=== PATIENT | female | born 2000 ===

== ENCOUNTER 2020-01-27 12:42 | Emergency (ER) | payer MEDICAID, SELFPAY ==
--- NOTE | 2020-01-27 | XR_ITS ---
EXAMINATION: XR CHEST CLINICAL INFORMATION: Cough COMPARISON: None TECHNIQUE: Frontal view of the chest was obtained. FINDINGS: No significant abnormality is noted involving the heart, lungs, mediastinum, bony thorax or soft tissues. IMPRESSION: Unremarkable examination.
[2020-01-27 13:32] VITALS: BP 142/86; PULSE 91; RESP 16; TEMP 36.6; O2SAT 97; BMI 50.1
--- NOTE | 2020-01-27 13:33 | ED.URI ---
HPI - URI/Sore Throat General Chief Complaint: Upper Respiratory Symptoms Stated Complaint: cough,sore throat Time Seen by Provider: 01/27/20 13:22 Source: patient Mode of arrival: ambulatory History of Present Illness HPI Narrative: 19-year-old female with no significant past medical history complaining of not feeling well for the past few days with dry cough, sore throat and generalized myalgias. Also reports mild/intermittent SOB and chest discomfort when coughing. Denies fever, recent travel, known exposure to COVID-19 MD elicited complaint: cough, sore throat and nasal congestion Related Data Allergies Allergy/AdvReac Type Severity Reaction Status Date / Time patterson Allergy Unknown SHORTNESS Unverified 01/07/20 16:57 OF BREATH Fruit Allergy Unknown swelling Uncoded 11/30/19 00:00 Seasonal Allergies Allergy Unknown itching Uncoded 11/30/19 00:00 Review of Systems Review of Systems: Constitutional: No Weight loss, No Fever, Chills, No Night Sweats, No Fatigue, Malaise ENT/Mouth: No Hearing loss, No Ear Pain, No Nasal Congestion, No Sinus Pain, No Hoarseness, sore throat, Rhinorrhea, No Swallowing Difficulty Cardiovascular: intermittent Chest Pain, intermittent SOB Respiratory: Cough, No Sputum, No Wheezing Gastrointestinal: No Nausea, No Vomiting, No Diarrhea, No Constipation, No abdominal Pain, No Hematochezia, No Melena Musculoskeletal: Myalgias Skin: No Skin Lesions, No rash Yes all other systems are reviewed and are negative PMFSH Past Medical History Attestation statement: The following information was validated with the patient. Medical History (Updated 01/27/20 @ 13:37 by Tana Haro) Anemia Seasonal allergies Surgical History (Updated 01/27/20 @ 13:37 by Tana Haro) Hx of tonsillectomy Social History Social History Advance Directives: No Advance Directives Information Provided: Yes Physical Exam Vital Signs and I&O and Narrative: Vital Signs and I&O: Vital Signs Temp 97.9 F 01/27/20 13:32 Pulse 91 01/27/20 13:32 Resp 16 01/27/20 13:32 BP 142/86 H 01/27/20 13:32 Pulse Ox 97 01/27/20 13:32 Intake & Output 01/26/20 01/27/20 01/27/20 18:59 06:59 18:59 Weight 145.15 kg Body Mass Index 50.1 Const: General: cooperative and healthy appearing Orientation/consciousness: patient oriented x3 Limitations: no limitations HENMT: Head: Yes normal to inspection Ears: hearing grossly normal bilaterally General nose exam: Normal external nose present Face and sinus: Yes normal facial exam Eyes: General: appearance normal, both eyes and all related structures EOM: EOMs intact bilaterally Neck: Neck: Yes normal visual inspection Resp: Effort & Inspection: normal respiratory effort and no stridor Auscultation: clear to auscultation bilaterally, no crackles, no rales, no rhonchi and no wheezes Cardio: Rate: regular rate Heart sounds: S1 normal heart sound present and S2 normal heart sound present Peripheral pulses: Peripheral pulses 2+ throughout Skin: Wounds: no wounds Neuro: General: patient oriented x3 Extrem: General: Yes normal to inspection Course Course Course Narrative: CXR unremarkable Discharge Plan Discharge Clinical Impression: Upper respiratory infection, Pharyngitis Patient Disposition: Home, Self-Care Instructions: COVID-19 (Coronavirus Disease 2019) (ED) Additional Instructions: Based on your symptoms and history we have sent a COVID-19. Although your RESULT IS PENDING at this time. RESULTS should return within 72 hours. At this time you will be contacted with either NEGATIVE OR POSITIVE results. -Please wait until we contact you for your results. At this time you will be okay for discharge. Please plan for self quarantine for up to 14 days. Do not expose yourself to others. You may not go to work. If testing does come back negative you may return to activities as long as you are no longer having any symptoms for at least 3 days. Please continue to follow cold instructions and wash your hands frequently. You may take Tylenol as directed on the bottle for pain or fever. Patient seen in the emergency department on 10/16/2019 and should be excused from work until negative test results AND until 72 hours without any symptoms AND at least 10 days have passed since symptoms first appeared or since last exposure to COVID-19 positive patient CDC Guidelines for home isolation: - Stay away from others - WEAR A MASK if you are sick AND STAY HOME - Cover your mouth and nose with a tissue when you cough or sneeze. Dispose of tissues in a lined trash can and wash your hands immediately with soap and water for at least 20 seconds. If soap and water are not available, clean hands with alcohol-based hand supervisor public message service that contains at least 60% alcohol. - Clean your hands often with soap and water for at least 20 seconds - Avoid touching your eyes, nose and mouth with unwashed hands - Do not share dishes, drinking glasses, cups, eating utensils, towels, or bedding with other people in your home. After using these items, wash them thoroughly with soap and water or put in the revenue audit clerk. - Clean high-touch surfaces in your isolation area ( sick room and bathroom) every day; let a caregiver clean and disinfect high-touch surfaces in other areas of the home. Clean the area or item with soap and water or another detergent if it is dirty. Then, use a household disinfectant. - Limit contact with pets and animals: If you must care for a pet, wash your hands before and after interacting with them Referrals: Physician,None [Primary Care Provider] - 2 days Stand Alone Forms: Work/School Release
== END 2020-01-27 15:00 | disposition home or self-care (01) ==
PROVIDERS: Physician Assistant; Emergency Provider Emergency Medicine
DX: J06.9 Acute upper respiratory infection, unspecified (principal); Z20.828 Contact with and (suspected) exposure to other viral communicable diseases; J02.9 Acute pharyngitis, unspecified; D64.9 Anemia, unspecified
CPT/HCPCS: 71045; 87071; 87635; 99283; 99284

== ENCOUNTER 2020-03-28 21:45 | Emergency (ER) | payer MEDICAID, SELFPAY ==
[2020-03-28 21:48] VITALS: BP 108/57; PULSE 72; RESP 20; TEMP 36.6; O2SAT 98; BMI 47.1
[2020-03-28 22:07] LABS: Glucose Urine UA NEG (NEG); Leukocyte Esterase Urine NEG (NEG); Nitrite Urine NEG (NEG); Specific Gravity - Urine >= 1.030 (1.005-1.025); Urine Blood NEG (NEG); Urine Ketones NEG (NEG); Urine Protein NEG (NEG-TRACE)
[2020-03-28 22:08] LABS: Appearance Urine CLEAR; Color Urine YELLOW
--- NOTE | 2020-03-28 23:14 | ED.ABDPAIN ---
HPI - Abdominal Pain General Chief Complaint: Abdominal Pain Stated Complaint: Abdominal pain Time Seen by Provider: 03/28/20 22:22 Source: patient Mode of arrival: ambulatory Limitations: no limitations History of Present Illness HPI narrative: patient obese 135 kg comes here for 1 month of diffuse abdominal pain without any nausea/ vomiting /diarrhea feels bloated sometimes asking for test for gastric ulcer. Patient denies any vomiting blood no black stools no history of ulcers in the past has not seen any PCP for this patient's mother has gastritis and patient wants to be tested for ulcer today MD elicited complaint: abdominal pain Pain Consistency: intermittent Location: diffuse Severity: mild Quality: cramping Radiation: none Migration to: no migration Exacerbating factors: nothing Relieving factors: nothing Associated symptoms: denies other symptoms Related Data Previous Rx's Medication Instructions Recorded omeprazole 20 mg PO DAILY #20 cap 03/29/20 Allergies Allergy/AdvReac Type Severity Reaction Status Date / Time patterson Allergy Unknown SHORTNESS Verified 03/28/20 23:43 OF BREATH Fruit Allergy Unknown swelling Uncoded 11/30/19 00:00 Seasonal Allergies Allergy Unknown itching Uncoded 11/30/19 00:00 Review of Systems Review of Systems REVIEW OF SYSTEMS: Pertinent positives and negatives are stated above in the history. GEN: no fevers, chills, fatigue HEENT: no nasal congestion, sore throat, ear pain NEURO: no headache, dizziness, focal weakness PULM: no cough, shortness of breath CV: no chest pain, palpitations, LE edema ABD: no nausea, vomiting, diarrhea : no dysuria, urgency, frequency SKIN: no rash ROS otherwise negative x 10 Physical Exam Vital Signs: Vital Signs: Last Vital Signs Temp 98 F 03/28/20 21:48 Pulse 72 03/28/20 21:48 Resp 20 03/28/20 21:48 BP 108/57 L 03/28/20 21:48 Pulse Ox 98 03/28/20 21:48 Body Mass Index 47.1 Appearance: Alert. Oriented X3. No acute distress. Eyes: Pupils equal, round and reactive to light. ENT: Pharynx normal. Neck: Normal inspection. Neck supple. CVS: Normal heart rate and rhythm. Pulses normal. Respiratory: No respiratory distress. Breath sounds normal. Abdomen: Soft and nontender. gallstones are present no flank tenderness no mass palpable no hernia palpable bowel sounds are present Skin: Skin warm and dry. Normal skin color. Normal skin turgor. Extremities: No lower extremity edema. Good range of movement Neuro: Oriented X 3. No motor deficit. No sensory deficit. MDM - Abdominal Pain Lab Data Labs: Lab Results 03/28/20 Range/Units 22:02 Urine Color YELLOW Urine Appearance CLEAR Urine pH 6.0 (5.0-8.0) Ur Specific [place] >= 1.030 H (1.005-1.025) Urine Protein NEG (NEG-TRACE) MG/DL Urine Glucose (UA) NEG (NEG) MG/DL Urine Ketones NEG (NEG) MG/DL Urine Blood NEG (NEG) Urine Nitrite NEG (NEG) Ur Leukocyte Esterase NEG (NEG) Discharge Plan Discharge Clinical Impression: Gastritis Qualifiers: Gastritis type: superficial Chronicity: acute Gastritis bleeding: without bleeding Qualified Code(s): K29.00 - Acute gastritis without bleeding Patient Disposition: Home, Self-Care Instructions: Gastritis (ED) Additional Instructions: you possibly have mild gastritis. Avoid greasy food and take Prilosec as advised and follow with PCP Prescriptions: New omeprazole 20 mg capsule,delayed release(DR/EC) 20 mg PO DAILY Qty: 20 RF: 0 Interventions: ED Discharge Assessment Last Done: 03/29/20 01:20 Discharge Date/Time: 03/29/20 01:20 [facility] Past Medical History Medical History Anemia Seasonal allergies Surgical History Hx of adenoidectomy Hx of tonsillectomy Family History Family History Father HTN (hypertension) Mother Arthritis HTN (hypertension) Brother No problems noted. Sister No problems noted. Sister No problems noted. Sister No problems noted. Sister No problems noted. Sister No problems noted. Sister No problems noted. Sister No problems noted. Social History Social History Smoking Status: Never smoker Advance Directives: No Advance Directives Information Provided: No
[2020-03-28] MEDS: Dicyclomine HCl 10 MG CAPSULE 20 MG PO (23:44)
[2020-03-29] MEDS: Omeprazole 40 MG CAPSULE.DR PO (00:34)
== END 2020-03-29 01:20 | disposition home or self-care (01) ==
PROVIDERS: Emergency Provider Internal Medicine
DX: K29.00 Acute gastritis without bleeding (principal)
CPT/HCPCS: 81003; 99283

== ENCOUNTER → 2020-04-13 09:45 | Outpatient (BNVA) | payer MEDICAID, SELFPAY | PROVIDERS: PCP Surgery; Visit Provider Surgery | DX: E66.01 Morbid (severe) obesity due to excess calories (principal); Z71.3 Dietary counseling and surveillance | CPT/HCPCS: 99212 ==

== ENCOUNTER 2020-05-05 15:30 | Outpatient (REF) | payer MEDICAID, SELFPAY | END 2020-05-05 15:31 | disposition home or self-care (01) | LOC: HO.LAB 15:30 | PROVIDERS: Visit Provider Internal Medicine | DX: Z20.822 Contact with and (suspected) exposure to COVID-19 (principal) | CPT/HCPCS: 36415; C9803; U0003 ==

== ENCOUNTER → 2020-05-06 08:22 | Outpatient (BNVA) | payer MEDICAID, SELFPAY | PROVIDERS: PCP Surgery; Visit Provider Dietitian, Registered | DX: Z76.89 Persons encountering health services in other specified circumstances (principal) ==

== ENCOUNTER → 2020-05-11 08:09 | Outpatient (BNVA) | payer MEDICAID, SELFPAY | PROVIDERS: PCP Internal Medicine; Visit Provider Surgery ==

== ENCOUNTER → 2020-05-13 13:50 | Outpatient (BNVA) | payer MEDICAID, SELFPAY | PROVIDERS: PCP Internal Medicine; Visit Provider Physician Assistant ==

== ENCOUNTER 2020-05-16 12:31 | Outpatient (REF) | payer MEDICAID, SELFPAY ==
[2020-05-16 13:53] LABS: MANUAL DIFF FLAG NO
[2020-05-16 13:56] LABS: Basophils Percent Auto 0.5 % (0-2); Eosinophils Absolute Auto 0.2 X10*3/uL (0.0-0.4); Eosinophils Percent Auto 1.9 % (0-4); Hemoglobin 12.4 g/dl (12.0-16.0); Imm Gran Abs Auto 0.01 X10*3/uL (0.00-0.03); Imm Gran Pct Auto 0.1 % (0.0-0.4); Lymphocytes Absolute Auto 2.3 X10*3/uL (1.2-4.9); Lymphocytes Percent Auto 27.5 % (20-40); Mean Corpuscular HGB Conc 31.8 g/dl (31.0-35.0); Mean Corpuscular Hemoglobin 26.8 pg (27.0-33.0); Mean Corpuscular Volume 84.4 fL (80-98); Mean Platelet Volume 10.2 fL (9.4-12.3); Monocytes Absolute Auto 0.4 X10*3/uL (0.1-1.2); Monocytes Percent Auto 5.2 % (2-11); Neutrophils Absolute Auto 5.3 X10*3/uL (2.0-8.3); Neutrophils Percent Auto 64.8 % (45-73); Platelet Count 310 X10*3/uL (160-400); Red Blood Count 4.62 X10*6/uL (4.20-5.50); Red Cell Distribution Width 13.5 % (11.0-16.0); White Blood Count 8.2 X10*3/uL (4.8-10.8)
[2020-05-16 14:01] LABS: INTERNATIONAL NORM RATIO 1.1 (0.9-1.1); Prothrombin Time 12.7 SEC (10.8-13.0)
[2020-05-16 14:04] LABS: Partial Thromboplastin Time 37.2 SEC (24.1-38.0)
[2020-05-16 14:07] LABS: Estimated Average Glucose 88 mg/dL; Hemoglobin A1c % 4.7 %
[2020-05-16 14:33] LABS: Alanine Aminotransferase 51 U/L (0-31); Albumin Level 4.1 g/dL (3.5-5.0); Alkaline Phosphatase 62 U/L (39-117); Anion Gap 16 (12-20); Aspartate Amino Transferase 29 U/L (5-31); Bilirubin Total 0.3 mg/dL (0.0-1.0); Blood Urea Nitrogen 10 mg/dL (9-16); C Reactive Protein 0.53 mg/dL (< or = 0.50); Calcium 9.3 mg/dL (8.4-10.2); Carbon Dioxide 23 mmol/L (22-29); Chloride 107 mmol/L (96-108); Cholesterol 132 mg/dL; Estimated Glomerular Filt Rate > 60; Glucose Random 86 mg/dL (60-115); HDL Cholesterol 43 mg/dL; LDL Cholesterol Calculated 76 mg/dl; Sodium 142 mmol/L (135-145); Total Protein 7.4 g/dL (6.5-8.0); Triglycerides 66 mg/dL
[2020-05-16 14:34] LABS: TSH reflex Free T4 1.96 mIU/mL (0.32-4.0)
[2020-05-17 17:52] LABS: Insulin Level Total 33.6 uIU/mL
== END 2020-05-16 12:32 | disposition home or self-care (01) ==
LOC: HO.LAB 12:31
PROVIDERS: PCP Internal Medicine; Visit Provider Surgery
DX: E66.01 Morbid (severe) obesity due to excess calories (principal)
CPT/HCPCS: 36415; 80053; 80061; 83036; 83525; 84443; 85025; 85610; 85730; 86140

== ENCOUNTER 2020-05-16 13:32 | Outpatient (REF) | payer MEDICAID, SELFPAY | END 2020-05-16 13:33 | disposition home or self-care (01) | LOC: HO.LAB 13:32 | PROVIDERS: Visit Provider Internal Medicine | DX: Z20.822 Contact with and (suspected) exposure to COVID-19 (principal) | CPT/HCPCS: 36415; C9803; U0003 ==

== ENCOUNTER → 2020-05-23 12:56 | Outpatient (BNVA) | payer MEDICAID, SELFPAY | PROVIDERS: Visit Provider Physician Assistant ==

== ENCOUNTER 2020-05-24 05:54 | Inpatient (IN) | payer MEDICAID, OTHER, SELFPAY ==
[2020-05-12 15:21] VITALS: BMI 46.0
--- NOTE | 2020-05-23 10:47 | HO.ANESPROP2 ---
Documented by User: Kaelyn Suresh 05/23/20 10:51 HPI - Anesthesia Eval Consult details Narrative: 19yo F for Gastrectomy Sleeve PMFSH Past Medical History Medical History Anemia Anxiety GERD (gastroesophageal reflux disease) Morbid obesity Recent URI Seasonal allergies Family History Family History Father HTN (hypertension) Mother Arthritis HTN (hypertension) Brother No problems noted. Sister No problems noted. Sister No problems noted. Sister No problems noted. Sister No problems noted. Sister No problems noted. Sister No problems noted. Sister No problems noted. Surgical History Surgical History Hx of adenoidectomy Hx of tonsillectomy Social History Social History Are you a primary client care consultant to a significant other at home: No Do you presently have visiting nurse or other home services: No Smoking Status: Never smoker Use of substances other than those prescribed or required for medical reasons: No Have you been hit, kicked, punched, or otherwise hurt by someone within the past year? If so, by whom?: No Advance Directives: No Advance Directives Information Provided: No Advance Directives on File: No Recently lost weight without trying: No Meds Allergies Allergy/AdvReac Type Severity Reaction Status Date / Time patterson Allergy Severe Shortness Verified 05/12/20 15:18 of Breath Fruit Allergy Intermediate Itching Uncoded 05/12/20 15:18 Seasonal Allergies Allergy Intermediate itching Uncoded 05/12/20 15:18 Home Medications Medication Instructions Recorded Confirmed Type multivitamin with iron 1 tab PO DAILY 04/13/20 05/11/20 History Exam Exam Date and Time: May 23, 2020 1047 Height,Weight and Vital Signs: Height 5 ft 7 in Weight 133.356 kg Pertinent Lab Results Pertinent Lab Results: Laboratory Tests 05/16/20 12:46 Blood Type O Positive Antibody Screen NEGATIVE Laboratory Tests 05/16/20 05/16/20 12:46 12:46 WBC 8.2 Hgb 12.4 Hct 39.0 Plt Count 310 Sodium 142 Potassium 4.0 Chloride 107 Carbon Dioxide 23 BUN 10 Creatinine 0.61 Laboratory Tests 05/16/20 05/16/2005/16/21 12:46 12:46 12:46 PT 12.7 INR 1.1 APTT 37.2 Hemoglobin A1c % 4.7 Total Bilirubin 0.3 AST 29 ALT 51 H Alkaline Phosphatase 62 C-Reactive Protein 0.53 H Total Protein 7.4 Albumin 4.1 Narrative Narrative: EKG 2019 NSR with SA @ 76 Assessment and Plan Assessment Anesthesia Assessment: Chart Reviewed Documented by User: Josse 05/24/20 08:21 PMFSH Past Medical History Medical History Anemia Anxiety GERD (gastroesophageal reflux disease) Morbid obesity Recent URI Seasonal allergies Family History Family History Father HTN (hypertension) Mother Arthritis HTN (hypertension) Brother No problems noted. Sister No problems noted. Sister No problems noted. Sister No problems noted. Sister No problems noted. Sister No problems noted. Sister No problems noted. Sister No problems noted. Surgical History Surgical History Hx of adenoidectomy Hx of tonsillectomy Social History Social History Are you a primary client care consultant to a significant other at home: No Do you presently have visiting nurse or other home services: No Smoking Status: Never smoker Use of substances other than those prescribed or required for medical reasons: No Have you been hit, kicked, punched, or otherwise hurt by someone within the past year? If so, by whom?: No Advance Directives: No Advance Directives Information Provided: No Advance Directives on File: No Recently lost weight without trying: No Meds Allergies Allergy/AdvReac Type Severity Reaction Status Date / Time patterson Allergy Severe Shortness Verified 05/12/20 15:18 of Breath Fruit Allergy Intermediate Itching Uncoded 05/12/20 15:18 Seasonal Allergies Allergy Intermediate itching Uncoded 05/12/20 15:18 Home Medications Medication Instructions Recorded Confirmed Type multivitamin with iron 1 tab PO DAILY 04/13/20 05/11/20 History Exam Airway Mallampati Class: III TM Dist: >3cm Neck ROM: Full Loose/Missing/Broken Teeth: No Heart: rrr+[id number] Lungs: cta b/l Assessment and Plan Assessment Anesthesia Assessment: Anesthesia Plan Discussed and PAT Visit Final Anesthetic Review NPO: Yes ASA Class: II Final Preanesthetic Review: No Changes in Pt Med Stat, Meds/Allgs Chart Reviewed, Consent Obtained/Reviewed and Anes Risks/Benef Reviewed Patient Risk: Low Procedure Risk: Low Assessment/Block/Sedation in SS: Assess/Block/Sedation-SS Anesthetic Plan Anesthetic Plan: GA and Agree w/ Assess. and Plan Disposition: Standard PACU
--- NOTE | 2020-05-23 20:40 | MHC.SHP ---
Pre-Procedural Eval Section A The patient is an INPATIENT: Yes The History & Physical has been completed within 30 days and I have reviewed it.: No Section B Chief Complaint: obesity Details of Present Illness: Morbid obesity Relevant Family History (Specify if Yes): No Relevant Social History: None Present Medications: see Short Stay Collaborative assessment Medical History: No relevant PMH History of Previous Operations: No relevant previous surgery Allergies: Allergies Allergy/AdvReac Type Severity Reaction Status Date / Time patterson Allergy Severe Shortness Verified 05/12/20 15:18 of Breath Fruit Allergy Intermediate Itching Uncoded 05/12/20 15:18 Seasonal Allergies Allergy Intermediate itching Uncoded 05/12/20 15:18 Review of Systems Sugical H&P ROS: Negative: Constitution, Cardiovascular, Respiratory, Neurological, Psychiatric, Hem-Onc, Allergic/Immunologic, Gastrointestinal, Genitourinary, Musculoskeletal, Integumentary, Endocrine and Eyes/Ears/Nose/Throat Exam Surgical H&P Exam: Normal: HEENT, Normal: Heart, Normal: Lungs, Normal: Extremities, Normal: Abdomen, Normal: Skin and Normal: Neurological Plan Diagnosis/Plan: Unchanged I have reviewed the history and physical and performed a pertinent physical examination on my patient. No changes have occurred unless specified.
[2020-05-24] VITALS (14 sets, daily range): BP systolic 122–151; BP diastolic 63–87; PULSE 56–98; RESP 14–18; TEMP 36.1–36.9; O2SAT 96–100
[2020-05-24 06:49] LABS: UPreg QC Valid YES; Urine Pregnancy NEGATIVE (NEGATIVE)
[2020-05-24] MEDS: Lactated Ringers 1,000 ML 999 ML IVCONT (06:54)
[2020-05-24 07:00] LABS: COVID-19 Test Negative (Negative); IDNOW Serial# 9DD0AD1C
[2020-05-24] MEDS: Lactated Ringers 1,000 ML 100 ML IVCONT (07:16)
--- NOTE | 2020-05-24 08:21 | HO.POSTANES ---
Post Anesthesia Evaluation Post Anesthesia Evaluation Vital Signs: Vital Signs Temp Pulse Resp BP Pulse Ox 05/24/20 06:49 98.4 F 68 16 131/64 96 Anesthesia: General Endotracheal-GETA Mental Status: Awake Pain Control: Satisfactory Nausea/Vomiting: None Hydration: Adequate Anesthesia-Related Issues: No Anes. Related Issues
--- NOTE | 2020-05-24 10:15 | P.DS_ITS ---
DS: Providers Provider Date of Service: 05/25/20 Date of admission: 05/24/20 05:54 Primary care physician: None Physician DS: Medications Discharge Medications Home Medications: Home Medications Medication Instructions Recorded Confirmed multivitamin with iron 1 tab PO DAILY 04/13/20 05/11/20 Previous Rx's Medication Instructions Recorded omeprazole 20 mg PO DAILY #20 cap 03/29/20 ondansetron HCl 4 mg tablet 4 mg PO Q6H PRN #30 tab 05/11/20 pantoprazole 40 mg tablet,delayed 40 mg PO DAILY #30 tab 05/11/20 release polyethylene glycol 3350 17 gram 17 g PO DAILY #14 ea 05/11/20 oral powder packet sucralfate 100 mg/mL oral 10 ml PO BID #420 ml 05/11/20 suspension DS: Summary Time Spent with Patient Time attestation: ADMITTING DIAGNOSIS: morbid obesity, GERD, hiatal hernia DISCHARGE DIAGNOSIS: same, s/p laparoscopic sleeve gastrectomy and repair of hiatal hernia PAST SURGICAL HISTORY: tonsils and adenoids PROCEDURE: upper endoscopy, laparoscopic sleeve gastrectomy with gastropexy and hiatal hernia repair DISCHARGE SUMMARY: History of Present Illness: The patient is a 19 year-old woman with a BMI of 54.4 kg/m2 and associated co- morbidities as described above. The patient had extensive work-up,lost 53 lbs preoperatively and was electively scheduled for laparoscopic, possible open sleeve gastrectomy and gastropexy. Risks and complications of the surgery were discussed with the patient in advance, particularly the possibility of , pulmonary embolism, anastomotic leak, bleeding, bowel injury, GERD, cardiac, renal or pulmonary complications. The patient understood all the risks and was in agreement with the surgical plan. Hospital Course: The patient underwent an uneventful laparoscopic sleeve gastrectomy with gastropexy and hiatal hernia repair on the day of admission. Postoperatively, the patient was transferred to the surgical floor. The patient was on IV Acetaminophen and IV dilaudid for pain control. Patient was started on bariatric phase 1 diet POD #0. On postoperative day one, the patient was feeling well without nausea, vomiting, fevers, or tachycardia. The patient had some mild incisional pain. The abdomen was soft. On the morning of postoperative day one, the patient was continued on 1 ounce of water or ice every half hour. During the first day, the patient did fairly well, having some incisional pain, but able to ambulate adequately and to tolerate liquids well. Since the patient is doing well, we decided that the patient was ready to be discharged. The patient was given instructions to follow-up with me next week and to call my office for any fever over 101, persistent abdominal pain, nausea, vomiting, GERD, symptoms of DVT such as calf tenderness, or leg swelling, or pulmonary embolism such as chest pain or shortness of breath. The patient was also instructed to drink 40-60 ounces of liquids per day using the 1-ounce cups. The patient was given prescription for Tylenol for pain, Zofran prn for nausea, and pantoprazole and carafate. The patient was encouraged to ambulate and use the incentive spirometer. The patient was allowed to shower, but no baths, and encouraged to stay active at home. All of these instructions were given to the patient personally. All questions were answered and the patient understood all instructions, the instructions were also given to the patient in print. Total time spent providing and/or coordinating discharge services: 30 minutes Discharge coordination time: Greater than 30 minutes Physical Exam Vital Signs: Vital Signs: Last Vital Signs Temp 97.2 F 05/24/20 10:11 Pulse 98 05/24/20 10:11 Resp 14 05/24/20 10:11 BP 139/86 05/24/20 10:11 Pulse Ox 100 05/24/20 10:11 Body Mass Index 46.0 DS: Data Data Completed and Pending Pending studies at discharge: Pending at discharge 05/24/20 08:36 Surgical [PTH] Routine Labs on day of discharge: Laboratory Tests 05/16/20 05/24/20 05/24/20 12:46 06:28 06:30 Urine Test NEGATIVE COVID-19 (JAMIL) Negative COVID-19 Clin Com See Note Blood Type O Positive Antibody Screen NEGATIVE Discharge Plan Discharge Anticipated Discharge Date/Time: 05/25/20 11:13 Patient Disposition: Home, Self-Care Referrals: Physician,None [Primary Care Provider] - Discharge Medications: Continued pantoprazole 40 mg tablet,delayed release (DR/EC) 40 mg PO DAILY Qty: 30 RF: 2 sucralfate 100 mg/mL suspension 10 ml PO BID Qty: 420 RF: 2 ondansetron HCl [Zofran] 4 mg tablet 4 mg PO Q6H PRN (Reason: nausea and vomiting) Qty: 30 RF: 0 Discontinued omeprazole 20 mg capsule,delayed release(DR/EC) 20 mg PO DAILY Qty: 20 RF: 0 multivitamin with iron [Daily Vitamin with Iron] Tablet 1 tab PO DAILY RF: 0 polyethylene glycol 3350 [Miralax] 17 gram powder in packet 17 g PO DAILY Qty: 14 RF: 0 Discharge Orders: Discharge Order (Routine); Ordered 05/25/20 Ordered By: Iker Marcos Diet: other Activity on Discharge: No heavy lifting Stand Alone Forms: Patient Portal Discharge page Activity Restrictions/Additional Instructions: No tub baths, sex or returning to work until discussed at first post op appointment. No exercise, alcohol, tobacco or illegal drug use. Continue to use incentive spirometer hourly while awake. Walk in home for 5- 10 minutes every 2 hours during the first week. Continue phase 1 diet today and start phase 2 diet tomorrow morning. Follow all instructions in the bariatric handbook and call with any questions. Visit Report Forms: Patient Portal Discharge page Care Plan Goals: weight loss Health Concerns: morbid obesity Plan of Treatment: see discharge instructions Discharge Date/Time: 05/25/20 12:46
--- NOTE | 2020-05-24 10:18 | P.BOP_ITS ---
Brief Operative Note Date of Service: 05/24/20 Pre-op diagnosis: Morbid obesity and comorbidities (see below) Post-op diagnosis: same (adhesions and diaphragmatic hernia) Procedure: INITIAL PATIENT BMI ON PRESENTATION AT OUR OFFICE: 54.4 kg/m2 LAST BMI BEFORE SURGERY: 46.2 kg/m2 COMORBIDITIES: GERD, back pain, liver steatosis The patient participated in an intensive weekly lifestyle intervention and exercise program during which the patient has lost between the initial office visit and the last preoperative visit 53 lbs, or 15.26% of initial actual body weight. The patient met the BMI-criteria for bariatric surgery based on the BMI on initial presentation. The patient should not be penalized for achieving such weight loss because it is not sustainable long-term without surgical intervention and it was achieved in preparation for bariatric surgery under my direction and based on my published research ([email or web address] and [email or web address]) that a 10% preoperative weight loss improves long-term weight loss after surgery and reduces perioperative complications. Insurance carriers such as [facility] have endorsed my recommendations and have included in their policies criteria to include a 10% preoperative weight loss requirement. PROCEDURE: Esophago-gastroscopy, laparoscopic repair of incarcerated diaphragmatic hernia, laparoscopic lysis of adhesions, laparoscopic sleeve gastrectomy and laparoscopic gastropexy INDICATIONS: This is a 19 year-old female who was electively scheduled for laparoscopic, possibly open sleeve gastrectomy. The risks and complications of the procedure were discussed with the patient in advance, particularly the possibility of ; pulmonary embolism; staple line leak; bleeding; GERD; cardiac, pulmonary, or renal complications; as well as long-term problems such as insufficient weight loss, vitamin deficiency, strictures, or ulcers. The patient understood all the risks, and was in agreement to proceed with surgery. DESCRIPTION OF PROCEDURE: After informed consent was obtained from the patient, the patient was given preoperative antibiotics, and was transferred to the operating room. After successful induction of general anesthesia, a Negrete catheter and pneumatic compressive devices were placed on both lower extremities. An upper endoscopy was performed next. The oropharynx and esophagus appeared to be within normal limits. There was a diaphragmatic hernia present of moderate size that was not reported at the preoperative upper GI. The stomach was entered. Then after all fluid and air were suctioned and the stomach was fully decompressed, the scope was withdrawn and secured in the mid esophagus. The patient was then prepped and draped in the usual sterile manner, and abdominal access was established at the right upper quadrant with the Claire technique. A 12 mm blunt port was inserted, and the abdomen was insufflated with CO2 to a pressure of 15 mmHg. Under direct visualization, additional ports were placed, specifically two 5 mm Versi-step ports to the left upper quadrant, and a 5 mm Versi-Step port to the right upper quadrant. 1% lidocained plan was used to infiltrate all port sites as well as all fascia defects. Following that, the patient was placed in a steep reverse Trendelenburg position. An additional 5 mm port was placed to the right flank for the Mediflex retractor that was used to retract the left lobe of the liver. The gastro-esophageal fat pad was opened with the ultrasonic device (Thunderbeat, Olympus) and the anterior esophagus and hiatus were exposed. The angle of His was opened with the ultrasonic device the fundus of the stomach from any diaphragmatic and splenic attachments. I then opened the gastrocolic ligament between the transverse colon and the greater curvature of the stomach with the ultrasonic device to enter the lesser sac and facilitate the ligation of the short gastric vessels. I started at a mid-point along the greater curvature and using the Thunderbeat, all short gastric vessels were divided all the way to the angle of His until the left roseline was completely dissected at its entirety. I then divided the gastro-colic ligament distally to a distance of about 3-4 cm proximal to the esophagus. There were extensive congenital adhesions between the pancreas and posterior gastric wall. Those were lysed completely with the ultrasonic device. Adhesiolysis took approximately 45 min to complete. There was an obvious significant-sized hiatal hernia. I continued dissecting along the hiatus toward the left roseline and the angle of His. I fully mobilized the fat pad that was incarcerated in the hernia. I then continued by dissecting even further into the posterior retro-esophageal space all the way to the angle of His. I continued to mobilize the esophagus into the mediastinum circumferentially. Both vagal nerves were seen and preserved. The right roseline was also dissected completely. At that point, I was able to have at least 3 to 5 cm of esophagus into the abdomen. After I completely mobilized the esophagus from both the left and right roseline and I had a good mobilization of the esophagus circumferentially, I closed the hernia defect with one interrupted #0 Surgidac suture using the Endo Stitch device, which was placed posterior to the esophagus. The stomach was then divided transversely with one Endo JENNIFER-45 purple and four JENNIFER-60 articulating orange loads using the AEON stapler and loads. Every effort was made that the gastric sleeve had a tubular shape and an even caliber throughout. Once the sleeve resection was completed, the staple line of the gastric sleeve was reinforced with Hemoclips. The resected stomach was retrieved without difficulty from the Claire port. A gastropexy was then performed in order to prevent postoperative GERD and partial gastric volvulus. Several interrupted 2.0 Surgidac sutures were placed between the sleeve's staple line and the previously divided greater omentum and gastro-colic ligament using the Endo-Stitch device. An upper endoscopy was performed. There was no narrowing at the GE junction. The scope was easily advanced all the way to the pylorus which was clearly visualized. There was no narrowing anywhere and the sleeve's caliber was even throughout. The sleeve's staple line was inspected and there was no evidence of ischemia, bleeding or dehiscence. At that point the gastroscope was withdrawn from the patient?s mouth while we were decompressing the bowel and the stomach from any remaining air. I looked into the lesser sac to see how the sleeve was situating and it was situating well. There was no bleeding from the staple line, spleen, or short gastric vessels. The Mediflex retractor was removed, and the undersurface of the liver was inspected and there was no bleeding. The patient was placed in supine position. I closed the fascial defect of the 12 mm port site with a figure of eight #1 Polysorb suture. Then 100 cc 0.25 % Marcaine plain with 10 mg of Dexamethasone were used to infiltrate the fascial closure as well as all skin incisions. At this point, the abdomen was deflated, all ports were removed under direct vision, and no bleeding was noted from any of the port sites. The skin incisions were irrigated with saline and were closed with 4-0 absorbable monofilament sutures. Steri-Strips and OpSites were used to cover all incisions. The patient was extubated and was transferred in stable condition to the recovery room for further care. I was present and performed all argueta parts of the procedure. Ms. Zaidi was the international first officer. There were no residents to assist with this case. Taiwo Marcos MD, PhD, FACS Surgeon: Iker Marcos MD Anesthesia: GETA, local and other (TAP block) Digital Art Director: Mariola Zaidi Estimated blood loss (mL): 10 IV fluids (mL): 3,000 Urine output (mL): 0 Pathology: other (stomach) Condition: stable Disposition: PACU
--- NOTE | 2020-05-24 10:24 | PM.PNGS ---
Subjective Subjective Date of Service: 05/25/20 Interval history: Patient has mild incisional pain. Was able to ambulate and use the incentive spirometer. Physical Exam Vital Signs: Vital Signs: Last Vital Signs Temp 97.2 F 05/24/20 10:11 Pulse 81 05/24/20 10:16 Resp 16 05/24/20 10:16 BP 149/83 H 05/24/20 10:16 Pulse Ox 100 05/24/20 10:16 Body Mass Index 46.0 GI: Inspection: Yes normal to inspection, Yes incision (clean, dry and intact) and Yes obesity Extrem: Right lower extremity: normal to inspection (no calf tenderness) Left lower extremity: normal to inspection (no calf tenderness) Progress Note: A&P Assessment and plan (1) Morbid obesity: Status: Acute (2) GERD (gastroesophageal reflux disease): Status: Acute (3) Congenital intra-abdominal adhesions: Status: Acute (4) Diaphragmatic hernia: Status: Acute (5) S/P repair of paraesophageal hernia: Status: Acute (6) S/P laparoscopic sleeve gastrectomy: Status: Acute Assessment and Plan: 19 year old female was admitted 05/24/2020 with morbid obesity and comorbidities. Problem 1: s/p laparoscopic sleeve gastrectomy, gastropexy, diaphragmatic hernia repair and lysis of adhesions Status: Doing well Plan: Check am labs, If OK, will continue phase 1 bariatric diet and discharge later today. (7) Steatosis, liver: Status: Acute (8) Back pain: Status: Acute Fall Risk Details Current Medications: Current Medications Generic Name Dose Route Start Last Admin Trade Name Freq PRN Reason Stop Dose Admin Fentanyl 50 mcg 05/24/20 08:21 Fentanyl Citrate/Pf 100 Mcg/2 Ml Vial IVPUSH Q5M PRN Pain, Moderate (Pain Scale 4-6 Hydromorphone HCl 0.5 mg 05/24/20 08:21 Hydromorphone Hcl 0.5 Mg/0.5 Ml Syringe IVPUSH Q5M PRN Pain, Severe (Pain Scale 7-10) Cefazolin Sodium/Dextrose 2 gm in 50 mls @ 100 mls/hr 05/24/20 06:00 Ancef IV 05/24/20 23:00 PREOP ORA Lactated Ringer's 1,000 mls @ 100 mls/hr 05/24/20 06:15 05/24/20 07:16 Lr IVCONT 100 mls/hr .Q10H ORA Administration Promethazine HCl 12.5 mg/ 50.5 mls @ 202 mls/hr 05/24/20 08:21 Sodium Chloride IV ONCE PRN Nausea and Vomiting Ondansetron HCl 4 mg 05/24/20 08:21 Ondansetron Hcl 4 Mg/2 Ml Vial IVPUSH ONCE PRN Nausea and Vomiting Oxycodone HCl 10 mg 05/24/20 08:21 Oxycodone Hcl Immed Release 5 Mg Tablet PO ONCE PRN Pain, Mild (Pain Scale 1-3) Time Spent With Patient Time: Total time spent is greater than 50% in coordination of care (as documented) at patient's floor/unit and/or counseling patient: Time with patient: less than 15 minutes
[2020-05-24] MEDS: fentaNYL citrate/PF 100 MCG/2 ML VIAL 50 MCG IVPUSH (10:27)
[2020-05-24 10:52] LABS: Hematocrit 37.3 % (37-47); Hemoglobin 12.1 g/dl (12.0-16.0)
[2020-05-24 11:11] LABS: Anion Gap 17 (12-20); Blood Urea Nitrogen 9 mg/dL (9-16); Calcium 8.7 mg/dL (8.4-10.2); Carbon Dioxide 19 mmol/L (22-29); Chloride 104 mmol/L (96-108); Creatinine Clr Calc Pharmacy 176.6; Estimated Glomerular Filt Rate > 60; Glucose Random 96 mg/dL (60-115); Sodium 136 mmol/L (135-145)
[2020-05-24] MEDS: Famotidine/PF 20 MG/2 ML VIAL IVPUSH ×2 (12:16→20:58)
[2020-05-24] MEDS: Lactated Ringers 1,000 ML 125 ML IVCONT ×2 (12:23→19:41)
[2020-05-24] MEDS: ceFAZolin Sodium/Dextrose,Iso 2 GM/50 ML PIGGYBACK IV (13:57)
[2020-05-24] MEDS: ondansetron HCL 4 MG/2 ML VIAL IVPUSH (19:41)
[2020-05-24] MEDS: 0.9 % Sodium Chloride Flush 3 ML SYRINGE IVFLUSH (21:04)
[2020-05-25] MEDS: HYDROmorphone HCl 0.5 MG/0.5 ML SYRINGE 0.25 MG IVPUSH ×2 (00:59→08:06)
[2020-05-25] MEDS: ondansetron HCL 4 MG/2 ML VIAL IVPUSH (03:23)
[2020-05-25] MEDS: Lactated Ringers 1,000 ML 125 ML IVCONT (03:25)
[2020-05-25 03:58] VITALS: BP 141/82; PULSE 64; RESP 18; TEMP 36.6; O2SAT 97
[2020-05-25 05:00] LABS: MANUAL DIFF FLAG NO
[2020-05-25 05:05] LABS: Hematocrit 36.7 % (37-47); Hemoglobin 11.9 g/dl (12.0-16.0); Imm Gran Abs Auto 0.07 X10*3/uL (0.00-0.03); Imm Gran Pct Auto 0.5 % (0.0-0.4); Lymphocytes Absolute Auto 0.7 X10*3/uL (1.2-4.9); Lymphocytes Percent Auto 5.6 % (20-40); Mean Corpuscular HGB Conc 32.4 g/dl (31.0-35.0); Mean Corpuscular Hemoglobin 26.9 pg (27.0-33.0); Mean Platelet Volume 10.3 fL (9.4-12.3); Monocytes Absolute Auto 0.6 X10*3/uL (0.1-1.2); Monocytes Percent Auto 4.3 % (2-11); Neutrophils Absolute Auto 11.8 X10*3/uL (2.0-8.3); Neutrophils Percent Auto 89.6 % (45-73); Platelet Count 360 X10*3/uL (160-400); Red Blood Count 4.42 X10*6/uL (4.20-5.50); Red Cell Distribution Width 12.9 % (11.0-16.0); White Blood Count 13.1 X10*3/uL (4.8-10.8)
[2020-05-25 05:27] LABS: Anion Gap 18 (12-20); Blood Urea Nitrogen 5 mg/dL (9-16); Carbon Dioxide 17 mmol/L (22-29); Chloride 106 mmol/L (96-108); Creatinine Clr Calc Pharmacy 189.6; Estimated Glomerular Filt Rate > 60; Glucose Random 98 mg/dL (60-115); Potassium 4.6 mmol/L (3.3-5.1); Sodium 136 mmol/L (135-145)
[2020-05-25 05:42] LABS: Calcium 9.1 mg/dL (8.4-10.2)
[2020-05-25 08:00] VITALS: BP 152/85; PULSE 67; RESP 18; TEMP 36.7; O2SAT 98
[2020-05-25] MEDS: Famotidine/PF 20 MG/2 ML VIAL IVPUSH (08:05)
[2020-05-25] MEDS: 0.9 % Sodium Chloride Flush 3 ML SYRINGE IVFLUSH (08:07)
[2020-05-25 08:21] VITALS: O2SAT 99
--- NOTE | 2020-05-25 08:58 | MHC.CM.PN ---
pt lives c her mother in her home. she reports being independent in her care, although her mother can help her c her needs, this will include a ride home at dc. 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 pt denies the need for vna at dc. dc plan is home no svcs. cm to cont. to follow.
[2020-05-25 11:49] VITALS: BP 122/56; PULSE 57; RESP 18; TEMP 36.6; O2SAT 99
== END 2020-05-25 12:46 | disposition home or self-care (01) | DRG 403 ==
LOC: HO.SSSA 10:15 → HO.S3 10:37
PROVIDERS: Nurse Practitioner; Physician Assistant; Admitting Provider Surgery; Visit Provider Surgery
PROC: 0DB64Z3 Excision of Stomach, Percutaneous Endoscopic Approach, Vertical (ICD-10-PCS; CPT 43845; principal; 2020-05-24 07:30)
DX: E66.01 Morbid (severe) obesity due to excess calories (principal); K76.0 Fatty (change of) liver, not elsewhere classified; K44.0 Diaphragmatic hernia with obstruction, without gangrene; K21.9 Gastro-esophageal reflux disease without esophagitis; Z68.42 Body mass index [BMI] 45.0-49.9, adult; M10.9 Gout, unspecified; K66.0 Peritoneal adhesions (postprocedural) (postinfection); Z20.822 Contact with and (suspected) exposure to COVID-19
CPT/HCPCS: 36415; 80048; 81025; 85014; 85018; 85025; 86850; 86900; 86901; 87635; 88307; 88342; 99024; A4649; J0131; J0690; J1100; J1170; J2250; J2370; J2405; J3010

== ENCOUNTER → 2020-05-26 13:46 | Outpatient (BNVA) | payer OTHER, SELFPAY | PROVIDERS: PCP Pediatrics Adolescent Medicine; Referring Provider Pediatrics Adolescent Medicine; Visit Provider Internal Medicine | DX: N91.2 Amenorrhea, unspecified (principal); L68.0 Hirsutism; E55.9 Vitamin D deficiency, unspecified | CPT/HCPCS: 99202 ==

== ENCOUNTER → 2020-05-30 08:04 | Outpatient (BNVA) | payer OTHER, SELFPAY | PROVIDERS: PCP Pediatrics Adolescent Medicine; Visit Provider Surgery | DX: E66.01 Morbid (severe) obesity due to excess calories (principal) | CPT/HCPCS: 99212 ==

== ENCOUNTER → 2020-06-27 07:30 | Outpatient (BNVA) | payer OTHER, SELFPAY | PROVIDERS: PCP Internal Medicine; Visit Provider Surgery | DX: E66.01 Morbid (severe) obesity due to excess calories (principal); Z68.41 Body mass index [BMI] 40.0-44.9, adult; Z71.3 Dietary counseling and surveillance | CPT/HCPCS: 99212 ==

== ENCOUNTER → 2020-07-20 08:16 | Outpatient (BNVA) | payer OTHER, SELFPAY | PROVIDERS: PCP Internal Medicine; Visit Provider Surgery | DX: E66.9 Obesity, unspecified (principal); Z68.39 Body mass index [BMI] 39.0-39.9, adult | CPT/HCPCS: 99212 ==

== ENCOUNTER 2020-07-20 22:54 | Inpatient (IN) | payer OTHER, SELFPAY ==
--- NOTE | ~2020-07-20 | NM_ITS ---
EXAMINATION: GB WALL THICKENING CLINICAL INFORMATION: GB wall thickening. Gastric sleeve surgery. Acute pancreatitis. COMPARISON: None TECHNIQUE: Following intravenous administration of 5 mCi of mebrofenin, imaging over the right upper quadrant was obtained upto 60 minutes. Delayed images were obtained up to 120 minutes. FINDINGS: There is a prominent hepatic uptake without any focal defect. The common bile duct is visualized by 60 minutes. The small bowel is visualized by 18 minutes. Gallbladder is not visualized up to 120 minutes. NM/NM hepatobiliary wo pharm IMPRESSION: Nonvisualization of gallbladder up to 120 minutes consistent with cystic duct obstruction. Patent CBD. Normal hepatic uptake.
--- NOTE | ~2020-07-20 | CT_ITS ---
EXAMINATION: CT ABDOMEN AND PELVIS WITH CONTRAST CLINICAL INFORMATION: Upper abdominal pain. COMPARISON: None. TECHNIQUE: Contiguous axial thin section helical images of the abdomen and pelvis were performed following the administration of 75 mL of intravenous Omnipaque 350. The data set was reformatted in the coronal and sagittal planes and reviewed on an independent workstation. DLP: 1104 mGy-cm. FINDINGS: The visualized lung bases are clear. The visualized portions of the heart are unremarkable. Surgical chain sutures are noted about the stomach in this patient status post gastric bypass. The liver is of normal size and attenuation without focal lesions nor intrahepatic biliary ductal dilation. There is mild gallbladder wall thickening without cholelithiasis. There is a small amount of pericholecystic fluid. The spleen, pancreas, adrenal glands are unremarkable. Both kidneys are of normal size and attenuation without hydronephrosis or nephrolithiasis. Following the administration of IV contrast, prompt symmetric nephrograms are displayed. There is no abdominal free fluid. There is neither mesenteric nor retroperitoneal lymphadenopathy. Normal unopacified loops of small and large bowel are identified. Within the right ovary, there is an approximately 18 mm mixed attenuation focus with fat and calcific attenuation demonstrable. There is a small amount of likely physiologic pelvic free fluid. The urinary bladder is unremarkable. There is neither pelvic nor inguinal lymphadenopathy. Bone windows: Neither sclerotic nor lytic bone lesions are identified. CT/CT abdomen pelvis w con IMPRESSION: Mild gallbladder wall thickening and trace pericholecystic fluid without demonstrable cholelithiasis. 18 mm dermoid cyst within the right ovary. Automated exposure control (Care Dose) Adjustment of the mA and/or kv according to patient size (this includes techniques or standardized protocols for targeted exams where dose is matched to indication / reason for exam; i.e. extremities or head).
--- NOTE | ~2020-07-20 | MR_ITS ---
EXAMINATION: MR ABDOMEN WITHOUT CONTRAST CLINICAL INFORMATION: Pancreatitis. Gallbladder wall thickening. COMPARISON: CT from today. TECHNIQUE: MR abdomen is performed without gadolinium contrast. Heavily T2-weighted sequence performed for MRCP acquisition. FINDINGS: LUNG BASES: The visualized lung bases are unremarkable. LIVER, GALLBLADDER, AND BILIARY TREE: The liver is normal in size, smooth in contour, and normal in signal. No focal hepatic lesion or biliary ductal dilatation is present. Multiple stones are seen in the gallbladder lumen. There is gallbladder wall thickening and edema. This measures 0.6 cm. The common bile duct is normal in caliber measuring 0.5 cm. No ductal filling defects are seen. PANCREAS: The pancreatic parenchyma appears homogenous. There is mild inflammatory stranding along the pancreatic body. No fluid collection. SPLEEN: Unremarkable. ADRENAL GLANDS: Unremarkable. KIDNEYS AND URETERS: The kidneys are normal in size and shape. No hydronephrosis. No perinephric stranding. GASTROINTESTINAL TRACT: No bowel obstruction. No ascites or fluid collection. ABDOMINAL WALL: No significant hernia is appreciated. LYMPH NODES: No lymphadenopathy. VASCULAR: Unremarkable. OSSEOUS STRUCTURES: Marrow signal normal. MR/MR MRCP IMPRESSION: Cholelithiasis with associated gallbladder wall thickening and edema. There is no ductal dilatation. There is no filling defect in the common bile duct. Mild inflammatory changes along the pancreatic body as can be seen in pancreatitis.
[2020-07-20 23:31] VITALS: BP 133/79; PULSE 56; RESP 16; TEMP 36.7; O2SAT 98
[2020-07-21] VITALS (9 sets, daily range): BP systolic 111–134; BP diastolic 62–82; PULSE 48–60; RESP 14–20; TEMP 36–36.7; O2SAT 98–100; BMI 39.6
[2020-07-21 00:30] LABS: Glucose Urine UA NEG (NEG); Leukocyte Esterase Urine TRACE (NEG); Nitrite Urine NEG (NEG); Specific Gravity - Urine >= 1.030 (1.005-1.025); UACC Culture Trigger YES; Urine Blood NEG (NEG); Urine Ketones 40 MG/DL (NEG); Urine Protein TRACE MG/DL (NEG-TRACE)
[2020-07-21 00:32] LABS: Appearance Urine HAZY; Color Urine ORANGE
--- NOTE | 2020-07-21 00:36 | ED_ITS ---
HPI - Abdominal Pain General Chief Complaint: Abdominal Pain Stated Complaint: Abdominal Pain Time Seen by Provider: 07/21/20 00:36 Source: patient Mode of arrival: ambulatory Limitations: no limitations History of Present Illness HPI narrative: pt s/p Sleeve surgery 06/12 with history of gastritis woke up 03:00 yesterday with pain in epigastric area with nausea and vomiting vomited multiple times still having the pain radiated into the back no abdominal distension no history of similar pain in the past patient does have gastritis with mild type of pain. No fever no diarrhea no other family member is sick no urinary complaint patient had similar attack in March no imaging was done at that time MD elicited complaint: abdominal pain Related Data Previous Rx's Medication Instructions Recorded ondansetron HCl 4 mg tablet 4 mg PO Q6H PRN #30 tab 05/11/20 pantoprazole 40 mg tablet,delayed 40 mg PO DAILY #30 tab 05/11/20 release sucralfate 100 mg/mL oral 10 ml PO BID #420 ml 05/11/20 suspension Allergies Allergy/AdvReac Type Severity Reaction Status Date / Time patterson Allergy Severe Shortness Verified 05/30/20 08:19 of Breath Fruit Allergy Intermediate Itching Uncoded 05/30/20 08:19 Seasonal Allergies Allergy Intermediate itching Uncoded 05/30/20 08:19 Review of Systems Review of Systems Constitutional : No Weight loss, No Fever, No Chills ENT/Mouth : No sore throat, No Rhinorrhea Eyes: No Eye Pain, No Swelling Cardiovascular : No Chest Pain, no palpitations Respiratory : No Cough, No Sputum, no shortness of breath Gastrointestinal : +Nausea,+ Vomiting, No Diarrhea, + abdominal Pain, no black stools Genitourinary : No Dysuria, No Urinary Frequency Musculoskeletal : No joint pain, No Myalgias, No Joint Swelling Skin : No Skin Lesions, No rash Neuro : No Weakness, No Numbness, No Dizziness, No Headache Psych : No Anxiety/Panic, No Depression Heme/Lymph: No Bruising, No Lymphadenopathy Endocrine : No Polyuria, No Polydipsia All other systems reviewed and are negative Physical Exam Vital Signs: Vital Signs: Last Vital Signs Temp 97.8 F 07/21/20 00:17 Pulse 50 07/21/20 03:33 Resp 16 07/21/20 03:33 BP 128/82 07/21/20 03:33 Pulse Ox 98 07/21/20 02:00 Body Mass Index 39.6 Appearance: Alert. Oriented X3. In moderate distress. Eyes: Pupils equal, round and reactive to light. ENT: Pharynx normal. No icterus Neck: Normal inspection. Neck supple. CVS: Normal heart rate and rhythm. Pulses normal. Respiratory: No respiratory distress. Breath sounds normal. Abdomen: Soft , epigastric tenderness Lamb sign negative, no rebound tenderness or guarding, Bowel sounds are present, no mass palpable, no CVA tenderness Skin: Skin warm and dry. Normal skin color. Normal skin turgor. Extremities: No lower extremity edema. Neuro: Oriented X 3. No motor deficit. No sensory deficit. MDM - Abdominal Pain MDM Narrative Medical decision making narrative: Patient with mid abdominal pain radiating to the back with elevated lipase and elevated LFTs CT scan did not show any gallstone was shows slight thickening of the gallbladder with slight fluid collection Lamb sign is negative . Slightly elevated LFTs likely obstructive etiology for pancreatitis. Patient triglycerides is normal. Plan to admit for IV hydration and plan for MRCP tomorrow. Differential Diagnosis Differential diagnosis: Likely abdominal pain, pancreatitis and peptic ulcer disease Medical Records Attestation: I reviewed the patient's medical records. Lab Data Attestation: I reviewed the patient's lab results. Result diagrams: 07/21/20 01:23 07/21/20 01:23 Labs: Lab Results 07/21/20 07/21/20 07/21/20 Range/Units 00:23 00:23 01:23 WBC 10.1 (4.8-10.8) X10*3/uL RBC 4.34 (4.20-5.50) X10*6/uL Hgb 11.8 L (12.0-16.0) g/dl Hct 36.4 L (37-47) % MCV 83.9 (80-98) fL MCH 27.2 (27.0-33.0) pg MCHC 32.4 (31.0-35.0) g/dl RDW 15.1 (11.0-16.0) % Plt Count 256 D (160-400) X10*3/uL MPV 10.7 (9.4-12.3) fL Immature Gran % (Auto) 0.3 (0.0-0.4) % Neut % (Auto) 85.3 H (45-73) % Lymph % (Auto) 7.3 L (20-40) % Luna % (Auto) 6.1 (2-11) % Eos % (Auto) 0.8 (0-4) % Baso % (Auto) 0.2 (0-2) % Lymph # (Auto) 0.7 L (1.2-4.9) X10*3/uL Luna # (Auto) 0.6 (0.1-1.2) X10*3/uL Eos # (Auto) 0.1 (0.0-0.4) X10*3/uL Baso # (Auto) 0.0 (0.0-0.2) X10*3/uL Abs Immat Gran (auto) 0.03 (0.00-0.03) X10*3/uL Absolute Neuts (auto) 8.6 H (2.0-8.3) X10*3/uL Absolute Nucleated RBC 0.000 (0.0-0.012) X10*3/uL Nucleated RBC % (auto) 0.0 (0.0-0.2) /100WBC Sodium (135-145) mmol/L Potassium (3.3-5.1) mmol/L Chloride (96-108) mmol/L Carbon Dioxide (22-29) mmol/L Anion Gap (12-20) BUN (9-16) mg/dL Creatinine (0.5-1.4) mg/dL Estim Creat Clear Calc Estimated GFR Random Glucose (60-115) mg/dL Lactic Acid (0.5-2.0) mmol/L Calcium (8.4-10.2) mg/dL Total Bilirubin (0.0-1.0) mg/dL Direct Bilirubin (0.0-0.5) mg/dL AST (5-31) U/L ALT (0-31) U/L Alkaline Phosphatase (39-117) U/L Total Protein (6.5-8.0) g/dL Albumin (3.5-5.0) g/dL Triglycerides mg/dL Cholesterol mg/dL LDL Cholesterol, Calc mg/dl HDL Cholesterol mg/dL Lipase (8-78) U/L Urine Color ORANGE Urine Appearance HAZY Urine pH 6.0 (5.0-8.0) Ur Specific [place] >= 1.030 H (1.005-1.025) Urine Protein TRACE (NEG-TRACE) MG/DL Urine Glucose (UA) NEG (NEG) MG/DL Urine Ketones 40 (NEG) MG/DL Urine Blood NEG (NEG) Urine Nitrite NEG (NEG) Ur Leukocyte Esterase TRACE H (NEG) Urine RBC 0-2 (0) /HPF Urine WBC 10-14 H (0-4) /HPF Ur Squamous Epith Cells 3+ /LPF Urine Bacteria TRACE /LPF Urine Mucus 3+ /LPF Urine Test NEGATIVE (NEGATIVE) 07/21/20 07/21/20 07/21/20 Range/Units 01:23 01:23 04:28 WBC (4.8-10.8) X10*3/uL RBC (4.20-5.50) X10*6/uL Hgb (12.0-16.0) g/dl Hct (37-47) % MCV (80-98) fL MCH (27.0-33.0) pg MCHC (31.0-35.0) g/dl RDW (11.0-16.0) % Plt Count (160-400) X10*3/uL MPV (9.4-12.3) fL Immature Gran % (Auto) (0.0-0.4) % Neut % (Auto) (45-73) % Lymph % (Auto) (20-40) % Luna % (Auto) (2-11) % Eos % (Auto) (0-4) % Baso % (Auto) (0-2) % Lymph # (Auto) (1.2-4.9) X10*3/uL Luna # (Auto) (0.1-1.2) X10*3/uL Eos # (Auto) (0.0-0.4) X10*3/uL Baso # (Auto) (0.0-0.2) X10*3/uL Abs Immat Gran (auto) (0.00-0.03) X10*3/uL Absolute Neuts (auto) (2.0-8.3) X10*3/uL Absolute Nucleated RBC (0.0-0.012) X10*3/uL Nucleated RBC % (auto) (0.0-0.2) /100WBC Sodium 140 (135-145) mmol/L Potassium 3.5 D (3.3-5.1) mmol/L Chloride 106 (96-108) mmol/L Carbon Dioxide 21 L (22-29) mmol/L Anion Gap 17 (12-20) BUN 5 L (9-16) mg/dL Creatinine 0.56 (0.5-1.4) mg/dL Estim Creat Clear Calc 211.3 Estimated GFR > 60 Random Glucose 92 (60-115) mg/dL Lactic Acid 1.1 (0.5-2.0) mmol/L Calcium 8.9 (8.4-10.2) mg/dL Total Bilirubin 2.1 H (0.0-1.0) mg/dL Direct Bilirubin 1.3 H (0.0-0.5) mg/dL AST 63 H (5-31) U/L ALT 80 H (0-31) U/L Alkaline Phosphatase 60 (39-117) U/L Total Protein 7.2 (6.5-8.0) g/dL Albumin 3.9 (3.5-5.0) g/dL Triglycerides 102 mg/dL Cholesterol 154 mg/dL LDL Cholesterol, Calc 100 mg/dl HDL Cholesterol 34 D mg/dL Lipase 1463 H (8-78) U/L Urine Color Urine Appearance Urine pH (5.0-8.0) Ur Specific [place] (1.005-1.025) Urine Protein (NEG-TRACE) MG/DL Urine Glucose (UA) (NEG) MG/DL Urine Ketones (NEG) MG/DL Urine Blood (NEG) Urine Nitrite (NEG) Ur Leukocyte Esterase (NEG) Urine RBC (0) /HPF Urine WBC (0-4) /HPF Ur Squamous Epith Cells /LPF Urine Bacteria /LPF Urine Mucus /LPF Urine Test (NEGATIVE) Discharge Plan Discharge Clinical Impression: Acute pancreatitis Qualifiers: Pancreatitis type: unspecified pancreatitis type Acute pancreatitis complication: unspecified Qualified Code(s): K85.90 - Acute pancreatitis without necrosis or infection, unspecified Patient Disposition: Admitted As Inpatient [facility] Past Medical History Medical History Amenorrhea Anemia Anxiety Back pain GERD (gastroesophageal reflux disease) Morbid obesity Recent URI Seasonal allergies Steatosis, liver Vitamin D deficiency Surgical History History of bariatric surgery Hx of adenoidectomy Hx of tonsillectomy Family History Family History Father HTN (hypertension) Mother Arthritis HTN (hypertension) Brother No problems noted. Sister No problems noted. Sister No problems noted. Sister No problems noted. Sister No problems noted. Sister No problems noted. Sister No problems noted. Sister No problems noted. Social History Social History Household Members: Family Smoking Status: Never smoker Advance Directives: No service: No Current occupational status: employed
[2020-07-21 00:37] LABS: Bacteria Urine TRACE /LPF; Mucus Urine 3+ /LPF; RBC Urine 0-2 /HPF (0); Squamous Epithelial Cell Urine 3+ /LPF
[2020-07-21 00:38] LABS: UPreg QC Valid YES; Urine Pregnancy NEGATIVE (NEGATIVE)
[2020-07-21] MEDS: Morphine Sulfate 4 MG/ML CARTRIDGE IVPUSH (01:14)
[2020-07-21] MEDS: 0.9 % Sodium Chloride 1,000 ML 999 ML IVCONT ×2 (01:14→03:33)
[2020-07-21] MEDS: Famotidine/PF 20 MG/2 ML VIAL IVPUSH ×3 (01:15→21:28)
[2020-07-21] MEDS: ondansetron HCL 4 MG/2 ML VIAL IVPUSH (01:15)
[2020-07-21 01:27] LABS: Basophils Percent Auto 0.2 % (0-2); Eosinophils Absolute Auto 0.1 X10*3/uL (0.0-0.4); Eosinophils Percent Auto 0.8 % (0-4); Hematocrit 36.4 % (37-47); Hemoglobin 11.8 g/dl (12.0-16.0); Imm Gran Abs Auto 0.03 X10*3/uL (0.00-0.03); Imm Gran Pct Auto 0.3 % (0.0-0.4); Lymphocytes Absolute Auto 0.7 X10*3/uL (1.2-4.9); Lymphocytes Percent Auto 7.3 % (20-40); MANUAL DIFF FLAG NO; Mean Corpuscular HGB Conc 32.4 g/dl (31.0-35.0); Mean Corpuscular Hemoglobin 27.2 pg (27.0-33.0); Mean Corpuscular Volume 83.9 fL (80-98); Mean Platelet Volume 10.7 fL (9.4-12.3); Monocytes Absolute Auto 0.6 X10*3/uL (0.1-1.2); Monocytes Percent Auto 6.1 % (2-11); Neutrophils Absolute Auto 8.6 X10*3/uL (2.0-8.3); Neutrophils Percent Auto 85.3 % (45-73); Platelet Count 256 X10*3/uL (160-400); Red Blood Count 4.34 X10*6/uL (4.20-5.50); Red Cell Distribution Width 15.1 % (11.0-16.0); White Blood Count 10.1 X10*3/uL (4.8-10.8)
--- NOTE | 2020-07-21 01:31 | PC.NURSE ---
IV established, labs obtained. outside plant technician obtaining EKG. Pt aware of plan to await lab results. Continue to monitor.
--- NOTE | 2020-07-21 01:32 | PC.NURSE ---
IV established by IRENE Chang. Labs obtained by reuse technician. Pt medicated by this RN for 8/10 abdominal pain and nausea. Pt aware of plan to CT. Continue to monitor.
[2020-07-21 02:07] LABS: Alanine Aminotransferase 80 U/L (0-31); Albumin Level 3.9 g/dL (3.5-5.0); Alkaline Phosphatase 60 U/L (39-117); Anion Gap 17 (12-20); Aspartate Amino Transferase 63 U/L (5-31); Bilirubin Direct 1.3 mg/dL (0.0-0.5); Bilirubin Total 2.1 mg/dL (0.0-1.0); Blood Urea Nitrogen 5 mg/dL (9-16); Calcium 8.9 mg/dL (8.4-10.2); Carbon Dioxide 21 mmol/L (22-29); Chloride 106 mmol/L (96-108); Creatinine Clr Calc Pharmacy 211.3; Estimated Glomerular Filt Rate > 60; Glucose Random 92 mg/dL (60-115); Potassium 3.5 mmol/L (3.3-5.1); Sodium 140 mmol/L (135-145); Total Protein 7.2 g/dL (6.5-8.0)
--- NOTE | 2020-07-21 02:20 | PC.NURSE ---
Pt off to CT on hospital bed.
[2020-07-21] MEDS: iohexoL 350 MG/ML 75 ML INFUS..BTL IV (02:27)
[2020-07-21 02:32] LABS: Lipase 1463 U/L (8-78)
--- NOTE | 2020-07-21 02:39 | PC.NURSE ---
Pt returns from CT, reports relief of pain/nausea. Pt aware of plan to await CT results. VSS. Continue to monitor.
--- NOTE | 2020-07-21 03:29 | PC.NURSE ---
at bedside to discuss CT results and plan for admission. Pt denies drinking alcohol regularly. Med Rec completed at bedside with pt. IVF infusing per MAR. Pt reports good pain control at this time. VSS. Continue to monitor.
[2020-07-21 03:35] LABS: Cholesterol 154 mg/dL; HDL Cholesterol 34 mg/dL; LDL Cholesterol Calculated 100 mg/dl; Triglycerides 102 mg/dL
--- NOTE | 2020-07-21 03:56 | P.HPHOSP_ITS ---
History of Present Illness Date of Service: 07/21/20 Chief Complaint: Abdominal pain 19-year-old female with a past medical history of obesity, gastric sleeve surgery in May 2020 presented to the hospital with a chief complaint of abdominal pain for the past couple days associated with nausea and vomiting. D enies any blood in the vomitus. Denies any fever chills cough. Denies any chest pains. Mentions he is not able to keep anything down. Mentioned that she takes pantoprazole and sucralfate at home. Denies any relation to the food. Denies any urinary symptoms. Review of all other systems is negative except mentioned above ER course: Per ER team patient noted to have diffuse abdominal tenderness clinic: Noted to elevated lipase, and mild elevation in liver enzymes and T bili of 2.1. CT scan showed gallbladder wall thickening. Patient had no fever and normal white count. Admitted to the hospital impression of acute pancreatitis. FOR[facility]LY [facility], LATER [facility] Medical History Amenorrhea Anemia Anxiety Back pain GERD (gastroesophageal reflux disease) Morbid obesity Recent URI Seasonal allergies Steatosis, liver Vitamin D deficiency Family History Father HTN (hypertension) Mother Arthritis HTN (hypertension) Brother No problems noted. Sister No problems noted. Sister No problems noted. Sister No problems noted. Sister No problems noted. Sister No problems noted. Sister No problems noted. Sister No problems noted. Surgical History History of bariatric surgery Hx of adenoidectomy Hx of tonsillectomy Social History Household Members: Family Housing: House Smoking Status: Never smoker service: No Current occupational status: employed Meds Allergies Allergy/AdvReac Type Severity Reaction Status Date / Time patterson Allergy Severe Shortness Verified 07/26/20 06:41 of Breath Fruit Allergy Intermediate Itching Uncoded 05/30/20 08:19 Seasonal Allergies Allergy Intermediate itching Uncoded 05/30/20 08:19 Active Medications: Current Medications Generic Name Dose Route Start Last Admin Trade Name Freq PRN Reason Stop Dose Admin Hydromorphone HCl 0.5 mg 07/21/20 03:36 Hydromorphone Hcl 0.5 Mg/0.5 Ml Syringe IVPUSH Q4H PRN Pain, Severe (Pain Scale 7-10) Sodium Chloride 1,000 mls @ 999 mls/hr 07/21/20 03:30 07/21/20 03:33 Ns IVCONT 07/21/20 04:30 999 mls/hr .Q1H1M ORA Administration Sodium Chloride 1,000 mls @ 100 mls/hr 07/21/20 03:45 Ns IVCONT .Q10H ORA Metronidazole 500 mg in 100 mls @ 100 mls/hr 07/21/20 04:00 Flagyl IV Q8H ORA Ceftriaxone Sodium 1 gm/ 50 mls @ 100 mls/hr 07/21/20 04:00 Sodium Chloride IV Q24H ORA Sodium Chloride 3 ml 07/21/20 08:00 0.9 % Sodium Chloride Flush 3 Ml Syringe IVFLUSH QSHIFT ORA Sucralfate 1 gm 07/21/20 07:30 Sucralfate Oral Suspension 1 Gm/10 Ml Oral.Susp PO BIDAC ORA Physical Exam Vital Signs and Narrative: Vital Signs: Last Vital Signs Temp 97.8 F 07/21/20 00:17 Pulse 50 07/21/20 03:33 Resp 16 07/21/20 03:33 BP 128/82 07/21/20 03:33 Pulse Ox 98 07/21/20 02:00 Body Mass Index 39.6 Gen: Appears be in no acute distress HEENT: NCAT, Moist mucosa. Pulmonary: Vesicular breath sounds, fair air entry CVS: Normal S1-S2 Abdomen: BS+, Soft, diffusely tender no guarding no rigidity Extremities: Warm well perfused Neuro: Alert and awake. Results Labs CBC and Chem 7: 07/22/20 07:50 07/22/20 07:51 Labs: Laboratory Results - last 24 hr 07/21/20 07/21/20 07/21/20 00:23 00:23 01:23 MCV 83.9 MCH 27.2 MCHC 32.4 RDW 15.1 Plt Count 256 D MPV 10.7 Immature Gran % (Auto) 0.3 Neut % (Auto) 85.3 H Lymph % (Auto) 7.3 L Barbour % (Auto) 6.1 Eos % (Auto) 0.8 Baso % (Auto) 0.2 Lymph # (Auto) 0.7 L [place] # (Auto) 0.6 Eos # (Auto) 0.1 Baso # (Auto) 0.0 Abs Immat Gran (auto) 0.03 Absolute Neuts (auto) 8.6 H Absolute Nucleated RBC 0.000 Nucleated RBC % (auto) 0.0 Anion Gap Estim Creat Clear Calc Estimated GFR Random Glucose Calcium Total Bilirubin Direct Bilirubin AST ALT Alkaline Phosphatase Total Protein Albumin Triglycerides Cholesterol LDL Cholesterol, Calc HDL Cholesterol Lipase Urine Color ORANGE Urine Appearance HAZY Urine pH 6.0 Ur Specific [place] >= 1.030 H Urine Protein TRACE Urine Glucose (UA) NEG Urine Ketones 40 Urine Blood NEG Urine Nitrite NEG Ur Leukocyte Esterase TRACE H Urine RBC 0-2 Urine WBC 10-14 H Ur Squamous Epith Cells 3+ Urine Bacteria TRACE Urine Mucus 3+ Urine Test NEGATIVE 07/21/20 07/21/20 01:23 01:23 MCV MCH MCHC RDW Plt Count MPV Immature Gran % (Auto) Neut % (Auto) Lymph % (Auto) Bar[place] % (Auto) Eos % (Auto) Baso % (Auto) Lymph # (Auto) [place] # (Auto) Eos # (Auto) Baso # (Auto) Abs Immat Gran (auto) Absolute Neuts (auto) Absolute Nucleated RBC Nucleated RBC % (auto) Anion Gap 17 Estim Creat Clear Calc 211.3 Estimated GFR > 60 Random Glucose 92 Calcium 8.9 Total Bilirubin 2.1 H Direct Bilirubin 1.3 H AST 63 H ALT 80 H Alkaline Phosphatase 60 Total Protein 7.2 Albumin 3.9 Triglycerides 102 Cholesterol 154 LDL Cholesterol, Calc 100 HDL Cholesterol 34 D Lipase 1463 H Urine Color Urine Appearance Urine pH Ur Specific [place] Urine Protein Urine Glucose (UA) Urine Ketones Urine Blood Urine Nitrite Ur Leukocyte Esterase Urine RBC Urine WBC Ur Squamous Epith Cells Urine Bacteria Urine Mucus Urine Test Imaging Radiologist's Impressions: Impressions Abdomen/Pelvis CT 07/21/20 00:39 IMPRESSION: Mild gallbladder wall thickening and trace pericholecystic fluid without demonstrable cholelithiasis. 18 mm dermoid cyst within the right ovary. Automated exposure control (Care Dose) Adjustment of the mA and/or kv according to patient size (this includes techniques or standardized protocols for targeted exams where dose is matched to indication / reason for exam; i.e. extremities or head). Assessment and Plan (1) Acute pancreatitis: Qualifiers: Acute pancreatitis complication: unspecified Pancreatitis type: unspecified pancreatitis type Qualified Code(s): K85.90 - Acute pancreatitis without necrosis or infection, unspecified Status: Acute 19-year-old female with a past medical history of obesity, history of gastric sleeve surgery presented to the hospital with a chief complaint of abdominal pain/nausea/vomiting; noted to have elevated lipase, liver enzymes, gallbladder wall thickening. Admitted to the hospital for further management. Acute pancreatitis: Noted to elevated T bili and liver enzymes. CT scan showed mild gallbladder wall thickening but no evidence of obvious gallstones. Discussed with Dr. Jeter who recommended MRCP. Pain control IV fluids NPO Gallbladder wall thickening: Patient T is afebrile. Will obtain a HIDA scan to rule out any cholecystitis. Will empirically cover with antibiotics the time being. Abnormal urinalysis: Patient on antibiotics as mentioned. Follow up cultures. Urine test negative. DVT prophylaxis: SCD boots GI prophylaxis: Pepcid Code status: Full code
--- NOTE | 2020-07-21 04:14 | PC.NURSE ---
geological technical officer at bedside with vein finder to obtain BCX. Pt noted to have extremely poor access.
[2020-07-21] MEDS: cefTRIAXone sodium 1 GM in 0.9 % Sodium Chloride 50 ML IV (04:30)
--- NOTE | 2020-07-21 04:44 | PC.NURSE ---
Lab to add Hep profile to previous labs.
[2020-07-21 04:53] LABS: Lactic Acid 1.1 mmol/L (0.5-2.0)
[2020-07-21] MEDS: metroNIDAZOLE/NS 500 MG/100 ML PIGGYBACK 100 MG IV ×3 (04:58→23:52)
--- NOTE | 2020-07-21 05:07 | PC.NURSE ---
Pt noted to be sinus ramakrishna on the monitor @ 43-48 bpm. Per pt, she states this is normal for her. Pt denies any weakness, fatigue, feeling faint at this time. Hospitalist notified. Flagyl infusing per MAR. VSS. Continue to monitor.
--- NOTE | 2020-07-21 05:42 | PC.NURSE ---
Covid swab obtained and sent.
[2020-07-21] MEDS: 0.9 % Sodium Chloride 1,000 ML 100 ML IVCONT ×2 (05:46→15:49)
[2020-07-21 05:58] LABS: COVID-19 Test Negative (Negative); IDNOW Serial# 9DD0AD1C
--- NOTE | 2020-07-21 06:32 | PC.NURSE ---
Phlebotomy at bedside for AM labs.
[2020-07-21 07:35] LABS: Anion Gap 15 (12-20); Blood Urea Nitrogen 4 mg/dL (9-16); Calcium 8.5 mg/dL (8.4-10.2); Carbon Dioxide 20 mmol/L (22-29); Chloride 110 mmol/L (96-108); Creatinine Clr Calc Pharmacy 207.7; Estimated Glomerular Filt Rate > 60; Glucose Random 79 mg/dL (60-115); Potassium 3.6 mmol/L (3.3-5.1); Sodium 141 mmol/L (135-145)
[2020-07-21 07:38] LABS: Basophils Percent Auto 0.1 % (0-2); Eosinophils Absolute Auto 0.1 X10*3/uL (0.0-0.4); Eosinophils Percent Auto 1.1 % (0-4); Hematocrit 34.4 % (37-47); Hemoglobin 11.3 g/dl (12.0-16.0); Imm Gran Abs Auto 0.02 X10*3/uL (0.00-0.03); Imm Gran Pct Auto 0.2 % (0.0-0.4); Lymphocytes Absolute Auto 1.5 X10*3/uL (1.2-4.9); Lymphocytes Percent Auto 17.3 % (20-40); MANUAL DIFF FLAG SCAN; Mean Corpuscular HGB Conc 32.8 g/dl (31.0-35.0); Mean Corpuscular Hemoglobin 27.4 pg (27.0-33.0); Mean Corpuscular Volume 83.5 fL (80-98); Monocytes Absolute Auto 0.6 X10*3/uL (0.1-1.2); Monocytes Percent Auto 7.2 % (2-11); Neutrophils Absolute Auto 6.6 X10*3/uL (2.0-8.3); Neutrophils Percent Auto 74.1 % (45-73); PLT CLUMP 1; Red Blood Count 4.12 X10*6/uL (4.20-5.50); Red Cell Distribution Width 15.2 % (11.0-16.0); SCAN SMEAR FLAG 1
[2020-07-21 07:49] LABS: White Blood Count 8.9 X10*3/uL (4.8-10.8)
[2020-07-21 07:50] LABS: Platelet Count 220 X10*3/uL (160-400); SLIDE REVIEW VERIFIED
[2020-07-21 07:59] LABS: Hepatitis B Surface Antigen Negative (Negative)
[2020-07-21 08:59] LABS: HBS Num1 12.13 mIU/mL (0-7.99); HBc Num1 0.05 S/CO (0.00-0.79); Hepatitis B Core Antibody Nonreactive (Nonreactive); ~HepC Num1 0.37 S/CO (0.00-0.79); ~Hepatitis B Surface Antibody REACTIVE (Nonreactive); ~Hepatitis C Antibody Nonreactive (Nonreactive)
--- NOTE | 2020-07-21 09:00 | PC.NURSE ---
report taken from [facility] @ 0700. patient has been in stretcher, no distress, not requiring or wanting to take pain medication at this time. patient aware of plan for MRCP sometime today. patient has been NPO. seen by Dr Jeter and Dr Hopkins this morning. possible DC home later today.
--- NOTE | 2020-07-21 10:23 | MHC.CM.PN ---
CM MET WITH PT WHO REPORTS SHE LIVES AT HOME WITH HER MOTHER AND IS INDEPENDENT WITH ALL CARE. PT REPORTS SHE DOES NOT USE DME. SHE REPORTS SHE ATTENDS FAMILY THERAPY BUT HAS NO IN HOME SERVICES. PT REPORTS SHE DOES NOT DRIVE BUT FRIENDS AND FAMILY ASSIST. PT DOES WORK. PT DOES NOT HAVE A HCP. EDUCATION REGARDING THE DOCUMENT WAS PROVIDED AND PT DECLINED TO COMPLETE ONE. PT DOES NOT HAVE A PCP. CM EXPLAINED THE PROCEDURE TO OBTAIN ONE BASED ON HER INSURANCE. PT INDICATES UNDERSTANDING. CURRENT DC PLAN IS HOME WITH NO SERVICES PTS FRIEND WILL PROVIDE TRANSPORTATION
[2020-07-21 10:31] LABS: Cholesterol 138 mg/dL; HDL Cholesterol 33 mg/dL; LDL Cholesterol Calculated 90 mg/dl; Triglycerides 76 mg/dL
--- NOTE | 2020-07-21 10:45 | CONS_ITS ---
DATE OF SERVICE: 07/21/2020 REFERRING PHYSICIAN: Leodan Larson MD REASON FOR CONSULTATION: Pancreatitis and elevated liver function tests. HISTORY OF PRESENT ILLNESS: The patient is a pleasant 19-year-old woman, who presented to the emergency room with abdominal pain, which began 2 days prior to admission. The pain was epigastric and radiated across both upper quadrants and waxed and waned without any precipitating or relieving factors. The pain radiated into the back. She was evaluated in the emergency department with laboratory studies, which documented elevation of her serum lipase at a level of 1400. She also had mild elevations of her transaminases and total bilirubin at 2.1 with an ALT of 63 and ALT of 80. Imaging studies were undertaken with CT scanning, which documented gallbladder wall thickening without visible stones. There was a small amount of pericholecystic fluid and the pancreas was described as unremarkable. PAST MEDICAL HISTORY: 1. Gastric sleeve surgery in May 2000. 2. Elevated body mass index. 3. Gastroesophageal reflux disease. 4. Seasonal allergies. 5. Tonsillectomy. CURRENT MEDICATIONS: Her current medication list is reviewed in the chart. ALLERGIES: THERE ARE NO REPORTED DRUG ALLERGIES. FAMILY HISTORY: This is reviewed with the patient and is negative for pancreatitis. SOCIAL HISTORY: There is no current tobacco, alcohol, or substance abuse. REVIEW OF SYSTEMS: SKIN: No pruritus. HEENT: Negative. CARDIOPULMONARY: She denies shortness of breath or chest pain. GASTROINTESTINAL: As above. GENITOURINARY: Negative. NEUROPSYCHIATRIC: Negative. She has lost approximately 90 pounds with diet and her surgery. A previous ultrasound in November of 2019 showed increased echogenicity and elastography showed changes consistent with [id number] fibrosis. IMPRESSION: Abdominal pain with elevated lipase. Her presentation appears consistent with pancreatitis, although her pancreas is described as structurally normal on her CAT scan. There are changes on her CT suggestive of possible cholecystitis and I would recommend further evaluation with MR imaging as no stones were seen on her CAT scan. Thanks for asking me to see her. I will follow her in the hospital with you. MD SONJA Navas/NEGRA / [phone]
--- NOTE | 2020-07-21 11:25 | PC.NURSE ---
PHLEBOTOMY AT BEDSIDE, PT WILL GO TO [facility] FOLLOWING BLOOD DRAW
--- NOTE | 2020-07-21 11:42 | PC.NURSE ---
SPECIMENS OBTAINED, PT TO MRI
[2020-07-21 11:49] LABS: Hematocrit 35.3 % (37-47); Hemoglobin 11.4 g/dl (12.0-16.0); Mean Corpuscular HGB Conc 32.3 g/dl (31.0-35.0); Mean Corpuscular Hemoglobin 27.5 pg (27.0-33.0); Mean Corpuscular Volume 85.3 fL (80-98); Mean Platelet Volume 11.1 fL (9.4-12.3); Platelet Count 247 X10*3/uL (160-400); Red Blood Count 4.14 X10*6/uL (4.20-5.50); Red Cell Distribution Width 15.5 % (11.0-16.0); White Blood Count 7.8 X10*3/uL (4.8-10.8)
[2020-07-21 12:36] LABS: Alanine Aminotransferase 66 U/L (0-31); Albumin Level 3.7 g/dL (3.5-5.0); Alkaline Phosphatase 55 U/L (39-117); Amylase 272 U/L (28-100); Anion Gap 13 (12-20); Aspartate Amino Transferase 37 U/L (5-31); Bilirubin Total 0.9 mg/dL (0.0-1.0); Blood Urea Nitrogen 4 mg/dL (9-16); Calcium 8.8 mg/dL (8.4-10.2); Carbon Dioxide 24 mmol/L (22-29); Chloride 109 mmol/L (96-108); Creatinine Clr Calc Pharmacy 207.7; Estimated Glomerular Filt Rate > 60; Glucose Random 71 mg/dL (60-115); Lipase 270 U/L (8-78); Potassium 3.5 mmol/L (3.3-5.1); Sodium 142 mmol/L (135-145); Total Protein 6.8 g/dL (6.5-8.0)
--- NOTE | 2020-07-21 12:56 | PC.NURSE ---
PT STILL OFF UNIT
[2020-07-21] MEDS: HYDROmorphone HCl 0.5 MG/0.5 ML SYRINGE IVPUSH (15:32)
[2020-07-21] MEDS: Piperacillin Sodium/Tazobactam 4.5 GM in 0.9 % Sodium Chloride 100 ML IV ×2 (17:18→22:44)
[2020-07-21] MEDS: Lactated Ringers 1,000 ML 125 ML IVCONT (19:57)
--- NOTE | 2020-07-21 21:08 | PM.PNGS ---
Subjective Subjective Date of Service: 07/22/20 Interval history: Feels better. Less pain overnight. Mild nausea intermittently Repeat blood work nearly normalized Physical Exam Vital Signs: Vital Signs: Last Vital Signs Temp 97.9 F 07/21/20 20:00 Pulse 54 07/21/20 20:00 Resp 15 07/21/20 20:00 BP 122/62 07/21/20 20:00 Pulse Ox 100 07/21/20 20:00 Body Mass Index 39.6 GI: Palpation (GI): Other GI palpation findings present (soft no tenderness) Progress Note: A&P Assessment and plan (1) Acute pancreatitis: Status: Acute Assessment and Plan: 1. Resolving. Start bariatric phase 2 diet. If tolerated, will be discharged and return for lap earnest on Saturday as scheduled 2. If she relapses, we will keep an inpatient and re-assess (2) Cholelithiasis: Status: Acute (3) Jaundice: Status: Acute Fall Risk Details Current Medications: Current Medications Generic Name Dose Route Start Last Admin Trade Name Freq PRN Reason Stop Dose Admin Famotidine 20 mg 07/21/20 09:00 07/21/20 08:43 Famotidine/Pf 20 Mg/2 Ml Vial IVPUSH 20 mg BID ORA Administration Hydromorphone HCl 0.5 mg 07/21/20 03:36 07/21/20 15:32 Hydromorphone Hcl 0.5 Mg/0.5 Ml Syringe IVPUSH 0.5 mg Q4H PRN Administration Pain, Severe (Pain Scale 7-10) Piperacillin Sod/Tazobactam 100 mls @ 200 mls/hr 07/21/20 16:15 07/21/20 17:51 Sod 4.5 gm/ Sodium Chloride IV Infused Q6H ORA Infusion Metronidazole 500 mg in 100 mls @ 100 mls/hr 07/21/20 23:00 Flagyl IV Q8H ORA Lactated Ringer's 1,000 mls @ 125 mls/hr 07/21/20 19:00 07/21/20 19:57 Lr IVCONT 125 mls/hr .Q8H ORA Administration Time Spent With Patient Time: Total time spent is greater than 50% in coordination of care (as documented) at patient's floor/unit and/or counseling patient: Time with patient: 15 - 24 minutes
[2020-07-22] MEDS: HYDROmorphone HCl 0.5 MG/0.5 ML SYRINGE IVPUSH ×3 (01:29→18:49)
[2020-07-22 04:00] VITALS: BP 126/71; PULSE 52; RESP 16; TEMP 36.6; O2SAT 99
[2020-07-22] MEDS: Piperacillin Sodium/Tazobactam 4.5 GM in 0.9 % Sodium Chloride 100 ML IV ×3 (05:37→18:00)
[2020-07-22 07:53] LABS: Hepatitis A Antibody IgM 0.13 Index (0-0.79); ~Hepatitis A Antibody IgM Nonreactive (Nonreactive)
[2020-07-22 08:00] VITALS: BP 118/70; PULSE 60; RESP 16; TEMP 36.7; O2SAT 100
[2020-07-22 08:16] LABS: Basophils Percent Auto 0.4 % (0-2); Eosinophils Absolute Auto 0.2 X10*3/uL (0.0-0.4); Eosinophils Percent Auto 2.4 % (0-4); Hematocrit 33.7 % (37-47); Hemoglobin 10.8 g/dl (12.0-16.0); Imm Gran Abs Auto 0.03 X10*3/uL (0.00-0.03); Imm Gran Pct Auto 0.4 % (0.0-0.4); Lymphocytes Percent Auto 26.5 % (20-40); MANUAL DIFF FLAG SCAN; Mean Corpuscular Hemoglobin 26.7 pg (27.0-33.0); Mean Corpuscular Volume 83.4 fL (80-98); Monocytes Absolute Auto 0.5 X10*3/uL (0.1-1.2); Monocytes Percent Auto 6.6 % (2-11); Neutrophils Absolute Auto 4.8 X10*3/uL (2.0-8.3); Neutrophils Percent Auto 63.7 % (45-73); PLT CLUMP 1; Red Blood Count 4.04 X10*6/uL (4.20-5.50); Red Cell Distribution Width 15.4 % (11.0-16.0); SCAN SMEAR FLAG 1
[2020-07-22] MEDS: metroNIDAZOLE/NS 500 MG/100 ML PIGGYBACK 100 MG IV ×2 (08:22→14:24)
[2020-07-22] MEDS: Famotidine/PF 20 MG/2 ML VIAL IVPUSH (08:23)
[2020-07-22 08:30] LABS: Alanine Aminotransferase 49 U/L (0-31); Albumin Level 3.4 g/dL (3.5-5.0); Alkaline Phosphatase 52 U/L (39-117); Amylase 62 U/L (28-100); Anion Gap 18 (12-20); Aspartate Amino Transferase 24 U/L (5-31); Bilirubin Direct 0.3 mg/dL (0.0-0.5); Bilirubin Total 0.7 mg/dL (0.0-1.0); Blood Urea Nitrogen 4 mg/dL (9-16); Calcium 8.5 mg/dL (8.4-10.2); Carbon Dioxide 19 mmol/L (22-29); Chloride 106 mmol/L (96-108); Creatinine Clr Calc Pharmacy 211.3; Estimated Glomerular Filt Rate > 60; Glucose Random 62 mg/dL (60-115); Lipase 37 U/L (8-78); Potassium 4.1 mmol/L (3.3-5.1); Sodium 139 mmol/L (135-145); Total Protein 6.5 g/dL (6.5-8.0)
[2020-07-22 08:44] LABS: White Blood Count 7.5 X10*3/uL (4.8-10.8)
[2020-07-22 08:46] LABS: SLIDE REVIEW VERIFIED
[2020-07-22] MEDS: Lactated Ringers 1,000 ML 125 ML IVCONT (10:13)
[2020-07-22 12:00] VITALS: BP 133/73; PULSE 52; RESP 16; TEMP 36.3; O2SAT 100
[2020-07-22 16:00] VITALS: BP 119/71; PULSE 50; RESP 15; TEMP 36.4; O2SAT 100
[2020-07-22 19:08] VITALS: BP 136/66; PULSE 53; RESP 14; TEMP 36.1; O2SAT 98
== END 2020-07-22 21:20 | disposition home or self-care (01) ==
LOC: HO.ED 07-21 03:21 → HO.EDOVER 07-21 06:20 → HO.S3 07-21 14:12
PROVIDERS: Physician Assistant; Admitting Provider Hospitalist; Emergency Provider Internal Medicine; PCP Internal Medicine; Visit Provider Surgery
DX: K80.20 Calculus of gallbladder without cholecystitis without obstruction (principal); K85.90 Acute pancreatitis without necrosis or infection, unspecified; K21.9 Gastro-esophageal reflux disease without esophagitis; Z98.84 Bariatric surgery status; Z79.899 Other long term (current) drug therapy
CPT/HCPCS: 36415; 74177; 74181; 78226; 80048; 80053; 80061; 80076; 81001; 81003; 81025; 82150; 83605; 83690; 85025; 85027; 86704; 86706; 86709; 86803; 87040; 87086; 87340; 87635; 96361; 96374; 96375; 99285; A9537; J0696; J1170; J2270; J2405; J2543; Q9967

== ENCOUNTER 2020-07-26 06:16 | Day surgery (SDC) | payer OTHER, SELFPAY ==
--- NOTE | 2020-07-25 10:03 | HO.ANESPROP2 ---
Documented by User: Kaelyn Suresh 07/25/20 10:05 HPI - Anesthesia Eval Consult details Narrative: 19yo F for Cholecystectomy Laparoscopic s/p gastric sleeve 05/2020 COUNT INCLUDES THE [facility] Active Problems Active Problems: All Active Problems (Updated 07/22/20 @ 20:50 by Iker Marcos MD) Cholecystitis (Acute) Jaundice (Acute) Cholelithiasis (Acute) Acute pancreatitis (Acute) BMI 39.0-39.9,adult (Acute) Obesity (Acute) Vitamin D deficiency (Acute) Amenorrhea (Acute) Steatosis, liver (Acute) S/P laparoscopic sleeve gastrectomy (Acute) S/P repair of paraesophageal hernia (Acute) Diaphragmatic hernia (Acute) Congenital intra-abdominal adhesions (Acute) Abdominal pain (Acute) GERD (gastroesophageal reflux disease) (Acute) Morbid obesity (Acute) Past Medical History Medical History Amenorrhea Anemia Anxiety Back pain GERD (gastroesophageal reflux disease) Morbid obesity Recent URI Seasonal allergies Steatosis, liver Vitamin D deficiency Family History Family History Father HTN (hypertension) Mother Arthritis HTN (hypertension) Brother No problems noted. Sister No problems noted. Sister No problems noted. Sister No problems noted. Sister No problems noted. Sister No problems noted. Sister No problems noted. Sister No problems noted. Surgical History Surgical History History of bariatric surgery Hx of adenoidectomy Hx of tonsillectomy Social History Social History Household Members: Family Housing: House Smoking Status: Never smoker Use of substances other than those prescribed or required for medical reasons: No Advance Directives: No Advance Directives Information Provided: Yes service: No Current occupational status: employed Meds Allergies Allergy/AdvReac Type Severity Reaction Status Date / Time patterson Allergy Severe Shortness Verified 07/26/20 06:41 of Breath Fruit Allergy Intermediate Itching Uncoded 05/30/20 08:19 Seasonal Allergies Allergy Intermediate itching Uncoded 05/30/20 08:19 Exam Exam Date and Time: July 25, 2020 1003 Pertinent Lab Results Pertinent Lab Results: Laboratory Tests 07/22/20 07/22/20 07:50 07:51 WBC 7.5 Hgb 10.8 L Hct 33.7 L Plt Count TNP Sodium 139 Potassium 4.1 Chloride 106 Carbon Dioxide 19 L BUN 4 L Creatinine 0.56 Laboratory Tests 07/21/20 00:23 Urine Test NEGATIVE Assessment and Plan Assessment Anesthesia Assessment: Chart Reviewed Documented by User: Adriana Parada 07/26/20 08:04 PMFSH Past Medical History Medical History Amenorrhea Anemia Anxiety Back pain GERD (gastroesophageal reflux disease) Morbid obesity Recent URI Seasonal allergies Steatosis, liver Vitamin D deficiency Family History Family History Father HTN (hypertension) Mother Arthritis HTN (hypertension) Brother No problems noted. Sister No problems noted. Sister No problems noted. Sister No problems noted. Sister No problems noted. Sister No problems noted. Sister No problems noted. Sister No problems noted. Family history of problems with anesthesia: No Surgical History Surgical History History of bariatric surgery Hx of adenoidectomy Hx of tonsillectomy History of Problems with Anesthesia: No Social History Social History Household Members: Family Housing: House Smoking Status: Never smoker Use of substances other than those prescribed or required for medical reasons: No Advance Directives: No Advance Directives Information Provided: Yes service: No Current occupational status: employed Meds Allergies Allergy/AdvReac Type Severity Reaction Status Date / Time patterson Allergy Severe Shortness Verified 07/26/20 06:41 of Breath Fruit Allergy Intermediate Itching Uncoded 05/30/20 08:19 Seasonal Allergies Allergy Intermediate itching Uncoded 05/30/20 08:19 Exam Height,Weight and Vital Signs: Height 5 ft 7.5 in Weight 111.493 kg Vital Signs Temp Pulse Resp BP Pulse Ox 07/26/20 06:42 98.1 F 64 16 107/59 L 98 Pertinent Lab Results Pertinent Lab Results: Lab Results 07/26/20 Range/Units 06:22 COVID-19 (JAMIL) Negative (Negative) COVID-19 Clin Com See Note Airway Mallampati Class: II TM Dist: >3cm Neck ROM: Full Heart: RRR Lungs: CTAB Assessment and Plan Assessment Anesthesia Assessment: Anesthesia Plan Discussed and Chart Reviewed Final Anesthetic Review NPO: Yes ASA Class: III Final Preanesthetic Review: No Changes in Pt Med Stat, Meds/Allgs Chart Reviewed, Consent Obtained/Reviewed and Anes Risks/Benef Reviewed Patient Risk: Intermediate Procedure Risk: Intermediate Assessment/Block/Sedation in SS: Assess/Block/Sedation-SS Anesthetic Plan Anesthetic Plan: GA Disposition: Standard PACU
--- NOTE | 2020-07-25 19:21 | P.HPSUR_ITS ---
Pre-Procedural Eval Section A The patient is an INPATIENT: No The History & Physical has been completed within 30 days and I have reviewed it.: Yes Section B Chief Complaint: pancreatitis Details of Present Illness: Cholelithiasis and pancreatitis Relevant Family History (Specify if Yes): No Relevant Social History: None Present Medications: see Short Stay Collaborative assessment Medical History: No relevant PMH History of Previous Operations: No relevant previous surgery Allergies: Allergies Allergy/AdvReac Type Severity Reaction Status Date / Time patterson Allergy Severe Shortness Verified 05/30/20 08:19 of Breath Fruit Allergy Intermediate Itching Uncoded 05/30/20 08:19 Seasonal Allergies Allergy Intermediate itching Uncoded 05/30/20 08:19 Review of Systems Sugical H&P ROS: Negative: Constitution, Cardiovascular, Respiratory, Neurological, Psychiatric, Hem-Onc, Allergic/Immunologic, Gastrointestinal, Genitourinary, Musculoskeletal, Integumentary, Endocrine and E yes/Ears/Nose/Throat Exam Surgical H&P Exam: Normal: HEENT, Normal: Heart, Normal: Lungs, Normal: Extremities, Normal: Abdomen, Normal: Skin and Normal: Neurological Plan Diagnosis/Plan: Unchanged (New onset of symptomatic cholelithiasis & pancreatitis. Patient is need for lap cholecystectomy. Risks and benefits were discussed with the patient and she is in agreement with the plan) I have reviewed the history and physical and performed a pertinent physical examination on my patient. No changes have occurred unless specified.
[2020-07-26] VITALS (10 sets, daily range): BP systolic 107–146; BP diastolic 59–93; PULSE 58–96; RESP 12–18; TEMP 36.7; O2SAT 98–100; BMI 37.9
[2020-07-26 06:58] LABS: COVID-19 Test Negative (Negative)
[2020-07-26] MEDS: Lactated Ringers 1,000 ML 100 ML IVCONT (07:06)
--- NOTE | 2020-07-26 09:38 | PM.OP ---
Brief Operative Note Date of Service: 07/26/20 Pre-op diagnosis: Acute cholecystitis, cholelithiasis and pancreatitis Post-op diagnosis: same Procedure: PROCEDURE DATE: 07/26/2020 PREOPERATIVE DIAGNOSIS: Symptomatic cholelithiasis, acute cholecystitis, pancreatitis POSTOPERATIVE DIAGNOSIS: Same as above. PROCEDURE: Laparoscopic cholecystectomy Surgeon: Taiwo Marcos M.D.. Ph.D. 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 The patient had remarkable weight loss so far and had a completely uneventful recovery. The patient was doing very well but has recently been complaining of persistent mid epigastric and right upper quadrant abdominal pain which is mostly postprandial. Blood work was suggestive of pancreatitis and mild jaundice. MRCP showed of the abdomen and pelvis was consistent with cholelithiasis and HIDA scan did not visualize the gallbladder. Based on this information I recommended laparoscopic cholecystectomy. In addition to that the plan was also to examine the gastric bypass at the same time. Risks and complications of the surgery were discussed with the patient in advance particularly the possibility of conversion to an open surgery, bleeding, infection, obstruction, deep vein thrombosis or pulmonary embolism, bile leak or major bile duct injury that may require surgical intervention. The patient understood the risks and was in agreement with the plan. PROCEDURE: After informed consent was obtained by the patient, the patient was transferred to the Operating Room and was placed in the supine position. The patient was given preoperative antibiotics and after successful induction of general anesthesia pneumatic compression devices were placed. The patient was then prepped and draped in the usual sterile manner and abdominal access was established with the Claire port. The abdomen was insufflated with C02 to a pressure of 15 mmHg. A 5 mm Versi-step port was placed, slightly to the right and superior from the umbilicus. The 5 mm camera was introduced. I inspected the area where the port had been placed and there was no injury. The patient was then placed initially in a steep reverse Trendelenburg position and three additional ports were placed, specifically a 12 mm Versi-step port just to the right of the midline below the xiphoid process and two 5 mm Versi-step ports at the right upper quadrant and right flank. At that point we positioned back the transverse colon and the omentum above the small intestine and then the patient was placed in a steep reverse Trendelenburg position tilted to the left side. The gallbladder was retracted cephalad and laterally. The peritoneum at the triangle of Calot was opened posteriorly and anteriorly. The cystic duct and artery were both seen. They were completely dissected free, skeletonized all the way to the infundibulum of the gallbladder. In a similar fashion we also cleaned the liver bed just behind the cystic artery to make sure there was no additional structures in this area. Once we confirmed that both structures were entering into the gallbladder and there were no other structures in the area, they were both clipped with two clips proximally, one distally and were cut in-between. I then using the electrocautery we slowly took down the gallbladder from the liver bed. Small areas of bleeding from the liver parenchyma were controlled with the cautery. One clip was placed near the liver bed to control a small bleeding pont. Afterthe gallbladder was completely detached from the liver bed, it was placed in an EndoCatch bag and was removed without difficulty from the xiphoid port. I then inspected the clips at the cystic duct and artery and were both in place. There was no active bleeding from the liver bed until clear. At that point the patient was placed in supine position, we deflated the abdomen and we removed all ports under direct vision and no bleeding was noted from any of the port sites. The fascia of the 12 mm port was closed using a #1 Polysorb suture. 60cc 0.5% Marcaine and 1% Lidocaine plain were used to infiltrate the fascial closure as well as all skin incisions. The wounds were irrigated with saline mixed with antibiotic solution and then the skin was closed with 4-0 Monocryl subcuticular sutures antibiotic-coated. Steri-strips and OpSites were used to cover all incisions. The patient extubated and was transferred in stable condition to the Recovery Room for further care. I was present and performed all steps of the procedure. Ms. Zaidi was the medical claims assistant. There were no residents to assist with this case. Taiwo Marcos M.D., Ph.D., F.A.C.S. Pre-bariatric lap earnest PROCEDURE DATE: PREOPERATIVE DIAGNOSIS: Symptomatic cholelithiasis, morbid obesity with a Surgeon: Iker Marcos MD Anesthesia: GETA, local and other (TAP block) Medical Safety Director: Mariola Zaidi Estimated blood loss (mL): 10 IV fluids (mL): 700 Urine output (mL): 0 (No Negrete to record) Pathology: other (Gallbladder) Condition: stable Disposition: PACU
== END 2020-07-26 12:06 ==
LOC: HO.SSS 06:16
PROVIDERS: Visit Provider Surgery
PROC: 0FT44ZZ Resection of Gallbladder, Percutaneous Endoscopic Approach (ICD-10-PCS; CPT 47562; principal; 2020-07-26 07:30)
DX: K80.20 Calculus of gallbladder without cholecystitis without obstruction (principal); K85.90 Acute pancreatitis without necrosis or infection, unspecified; K76.0 Fatty (change of) liver, not elsewhere classified; K21.9 Gastro-esophageal reflux disease without esophagitis; D64.9 Anemia, unspecified; E55.9 Vitamin D deficiency, unspecified; E66.01 Morbid (severe) obesity due to excess calories; Z68.39 Body mass index [BMI] 39.0-39.9, adult; Z79.899 Other long term (current) drug therapy; Z98.84 Bariatric surgery status
CPT/HCPCS: 47562; 36415; 87635; 88304; J0131; J0690; J1100; J1170; J2250; J2370; J2405; J3010

== ENCOUNTER → 2020-08-05 08:03 | Outpatient (BNVA) | payer OTHER, SELFPAY | PROVIDERS: Visit Provider Surgery | DX: E66.9 Obesity, unspecified (principal) | CPT/HCPCS: 99212 ==

== ENCOUNTER → 2020-09-05 08:13 | Outpatient (BNVA) | payer OTHER, SELFPAY | PROVIDERS: Visit Provider Surgery ==

== ENCOUNTER 2021-12-26 15:29 | Outpatient (REF) | payer OTHER, SELFPAY ==
[2021-12-26 16:21] LABS: Hematocrit 40.8 % (37.0-47.0); Hemoglobin 13.2 g/dl (12.0-16.0); Mean Corpuscular HGB Conc 32.4 g/dl (31.0-35.0); Mean Corpuscular Hemoglobin 27.5 pg (27.0-33.0); Mean Platelet Volume 9.3 fL (9.4-12.3); Platelet Count 347 X10*3/uL (160-400); Red Cell Distribution Width 12.2 % (11.0-16.0); White Blood Count 10.4 X10*3/uL (4.8-10.8)
[2021-12-26 16:40] LABS: Alanine Aminotransferase 12 U/L (0-31); Albumin Level 4.2 g/dL (3.5-5.0); Alkaline Phosphatase 78 U/L (39-117); Anion Gap 13 (12-20); Aspartate Amino Transferase 20 U/L (5-31); Bilirubin Total 0.8 mg/dL (0.0-1.0); Blood Urea Nitrogen 12 mg/dL (9-16); Calcium 9.3 mg/dL (8.4-10.2); Carbon Dioxide 26 mmol/L (22-29); Chloride 104 mmol/L (96-108); Cholesterol 133 mg/dL; Estimated Glomerular Filt Rate > 60; Glucose Fasting 82 mg/dL (60-99); HDL Cholesterol 66 mg/dL; LDL Cholesterol Calculated 54 mg/dl; Potassium 4.2 mmol/L (3.3-5.1); Sodium 139 mmol/L (135-145); Total Protein 7.9 g/dL (6.5-8.0); Triglycerides 66 mg/dL
[2021-12-26 17:00] LABS: TSH reflex Free T4 0.89 uIU/mL (0.32-4.0)
== END 2021-12-26 15:30 | disposition home or self-care (01) ==
LOC: HO.LAB 15:29
PROVIDERS: PCP Hospitalist; Visit Provider Hospitalist
DX: Z00.00 Encounter for general adult medical examination without abnormal findings (principal); Z13.220 Encounter for screening for lipoid disorders; Z13.29 Encounter for screening for other suspected endocrine disorder
CPT/HCPCS: 36415; 80053; 80061; 84443; 85027

== ENCOUNTER 2022-01-04 14:38 | Outpatient (REF) | payer OTHER, SELFPAY ==
[2022-01-04 15:42] LABS: Estimated Average Glucose 88 mg/dL; Hemoglobin A1c % 4.7 %
[2022-01-04 15:55] LABS: C Reactive Protein 0.22 mg/dL (< or = 0.50); Iron 151 mcg/dL (30-160); Percent Iron Saturation 36 % (15-50); Total Iron Binding Capacity 414 mcg/dL (228-428); Unsaturated Iron Binding 263 ug/dL
[2022-01-04 16:17] LABS: Ferritin 86 ng/mL (10-122); Insulin 12 uU/mL (2-29); Vitamin D 25-OH Total 22.1 ng/mL (>30)
[2022-01-04 16:26] LABS: Folate 15.7 ng/mL (> or = 4.0); Vitamin B12 861 pg/mL (200-900)
[2022-01-05 15:21] LABS: Calcium (PTHI) 9.6 mg/dL (8.6-10.2); PTHI 41 pg/mL (16-77)
[2022-01-09 06:07] LABS: Zinc 83 mcg/dL (60-130)
[2022-01-10 17:27] LABS: Vitamin B1 17 nmol/L (8-30)
[2022-01-10 20:46] LABS: Vitamin A 38 mcg/dL (38-98)
== END 2022-01-04 14:39 | disposition home or self-care (01) ==
LOC: HO.LAB 14:38
PROVIDERS: PCP Hospitalist; Visit Provider Physician Assistant Surgical
DX: E66.9 Obesity, unspecified (principal); Z71.3 Dietary counseling and surveillance; Z98.84 Bariatric surgery status; Z68.36 Body mass index [BMI] 36.0-36.9, adult
CPT/HCPCS: 36415; 82306; 82607; 82728; 82746; 83036; 83525; 83540; 83970; 84425; 84590; 84630; 86140; 99212

== ENCOUNTER 2023-03-29 22:56 | Emergency (ER) | payer OTHER, SELFPAY | END 2023-03-30 00:12 | disposition left against medical advice (07) | PROVIDERS: Emergency Provider Emergency Medicine | DX: R50.9 Fever, unspecified (principal) ==

== ENCOUNTER 2023-10-11 12:27 | Outpatient (AMB) | payer OTHER, SELFPAY ==
[2023-10-11 12:32] VITALS: BP 102/66; PULSE 55; RESP 14; TEMP 36.6; O2SAT 99; BMI 35.2
--- NOTE | 2023-10-11 12:32 | A.OFFPC_ITS ---
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 Kitchen And Counter Worker Required: No Accompanied by: Self / Same As Patient Allergies patterson Allergy (Severe, Verified 10/11/23 12:54) Shortness of Breath Fruit Allergy (Intermediate, Uncoded 08/21/22 13:33) Itching Seasonal Allergies Allergy (Intermediate, Uncoded 08/21/22 13:33) itching Medication List - Last Reconciled 10/11/23 by PAULINE Kuhn No Known Home Meds Tobacco use date assessed: 10/11/23 Dental Screening Dental Screen Date: 10/11/23 Did you have a dental visit in the last 12 months?: No Did you have a dental problem in the last 6 months where you did not have access to dental care?: No Was dental information given to patient?: Yes HPI HPI Comments History of Present Illness Details 23-year-old female with PCOS, morbid obe sity, GERD, vitamin-D deficiency, hepatic steatosis, pancreatitis, generalized anxiety disorder, seasonal allergies, 18 mm dermoid cyst within the right ovary, iron def anemia Status post laparoscopic sleeve gastrectomy, repair of paraesophageal hernia, cholecystectomy, tonsils and adenoids Health Maintenance: Pap @ [facility] 09/2023 reports NL Tdap today Specialists: CORRECTIONAL COUNSELOR/CASE MANAGER Metabolic clinic Endo Here today to establish care for complete physical exam. Chart was reviewed prior to appointment today. PCOS - endocrine consult in the past. Did not follow through on this. Interested in a specialist to follow her on this. Vitamin-D deficiency and iron-deficiency anemia reports that she is supposed to be taking supplements for this but often forgets. Generalized anxiety disorder not currently on any medications and not currently in therapy. Denies any symptoms today. Hepatic steatosis denies any GI complaints. Guarded resolved status post gastric sleeve Seasonal allergies uses [id number] medications with positive effects. Morbid obesity: Records indicate that she had a laparoscopic sleeve gastrectomy at [facility]. However she reports to me today that she had a complete gastric bypass done 06/11/2023 at [place]. I do not have any records on this. Be that as it may she is complaining that her weight has plateaued. She was going to the gym 7 days a week however she has been without a car. She will be going to her car back this week and is highly motivated to continue to lose weight. She is interested in medication to assist in her weight loss. Her BMI remains greater than 35. Plan Refer to endocrinology as well as boring mill operator for PCOS management. Refer to metabolic clinic at [facility] Please take supplements as directed by the bariatric group to help with her iron-deficiency anemia and vitamin-D deficiency Defer labs at this time as this will be done during the metabolic clinic evaluation Hepatic steatosis is usually followed by the bariatric clinic as well Pnlr-ijh-bdxhlhe meds p.r.n. seasonal allergies Return to the office in 1 year for complete physical exam sooner as needed [facility] Medical History (Updated 10/11/23 @ 14:59 by PAULINE Kuhn) Acute pancreatitis Obesity (BMI 35.0-39.9 without comorbidity) Vitamin D deficiency Amenorrhea Back pain Steatosis, liver Anxiety Recent URI GERD (gastroesophageal reflux disease) Morbid obesity Anemia Seasonal allergies Surgical History (Updated 10/11/23 @ 14:58 by PAULINE Kuhn) S/P repair of paraesophageal hernia S/P laparoscopic sleeve gastrectomy S/P cholecystectomy H/O gastric bypass History of bariatric surgery Hx of adenoidectomy Hx of tonsillectomy Family History Father HTN (hypertension) Mother Arthritis HTN (hypertension) Brother No problems noted. Sister No problems noted. Sister No problems noted. Sister No problems noted. Sister No problems noted. Sister No problems noted. Sister No problems noted. Sister No problems noted. 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 1. Little interest or pleasure in doing things: not at all 2. Feeling down, depressed, or hopeless: not at all 3. Trouble falling or staying asleep, or sleeping too much: not at all 4. Feeling tired or having little energy: not at all 5. Poor appetite or overeating: not at all 6. Feeling bad about yourself - or that you are a failure or have let yourself or your family down: not at all 7. Trouble concentrating on things, such as reading the newspaper or watching television: not at all 8. Moving or speaking so slowly that other people could have noticed. Or the opposite - being so fidgety or restless that you have been moving around a lot more than usual: not at all 9. Thoughts that you would be better off or of hurting yourself in some way: not at all Total score: 0 Depression Screening Interpretation: Negative Depression Screening Done: Yes 33295 - PHQ-9 Billing: Yes Source: Developed by Drs. Armando Vasquez, Sadie Villalpando, Jacob Talbot and colleagues, with an educational mike from [employer]. Thrive Questionnaire Date Thrive assessed: 10/11/23 I am a: Patient What is your living situation today?: I have a steady place to live Within the past 12 months, did the food you bought not last and you didn't have the money to get more?: Never true Within the past 12 months, did you worry whether your food would run out before you got money to buy more?: Never true Do you have trouble paying for medicines?: No Do you have trouble getting transportation to medical appointments?: No Do you have trouble paying your heating and electricity bill?: No Do you have trouble taking care of your child, family member or friend?: No Do you have trouble with day-to-day activities such as bathing, preparing meals, shopping, managing finances, etc.?: No Are you currently unemployed and looking for a job?: No Are you interested in more education?: No Please select the resources that you would like help with: None Currently or been in a relationship where the following occur: no concerns reported THRIVE Score: 0 AUDIT C Alcohol Use Questionnaire (AUDIT-C) 1. How often do you have a drink containing alcohol?: Monthly or less 2. How many drinks containing alcohol do you have on a typical day when you are drinking?: 1 or 2 3. How often do you have six or more drinks on one occasion?: Never Total Score: 1 Score Reviewed/Action Taken: Yes COURT-[address] - 7 assessed: 10/11/23 Feeling nervous, anxious, or on edge: 0 = Not at all Not being able to stop or control worryin = Not at all Worrying too much about different things: 0 = Not at all Trouble relaxin = Not at all Being so restless that it is hard to sit still: 0 = Not at all Becoming easily annoyed or irritable: 0 = Not at all Feeling afraid as if something awful might happen: 0 = Not at all Total COURT-7 score (0-4 normal; 5-9 mild; 10-14 moderate; 15-21 severe): 0 Source: Developed by Drs. Armando Vasquez, Sadie Villalpando, Jacob Talbot and colleagues, with an educational mike from [employer]. COURT-[address]-7 Assessment Tool: COURT-7 Assessment 27652 Review of Systems Const Details: Constitutional: Denies fever. Skin: Denies rash. Eye: Denies eye pain. ENMT: Denies sore throat and nasal congestion. Respiratory: Denies shortness of breath and cough. Gastrointestinal: Denies nausea, vomiting or abdominal pain. Cardiovascular: Denies chest pain and syncope. Genitourinary: Denies dysuria. Musculoskeletal: Denies back pain and extremity pain. Neurologic: Denies headaches, confusion, and weakness. Psychiatric: Denies suicidal thoughts and substance abuse. Allergy/ Immunologic: Denies impaired immunity. Physical exam (Primary Care) Vital Signs: Last Vital Signs Temp 97.8 F 10/11/23 12:32 Pulse 55 10/11/23 12:32 Resp 14 10/11/23 12:32 BP 102/66 10/11/23 12:32 Pulse Ox 99 10/11/23 12:32 Oxygen Delivery Method Room Air 10/11/23 12:32 BMI result Body Mass Index 35.2 BMI Assessment/Plan discussion: High BMI High, discussed plan: lifestyle Tobacco/Smoking Status: Tobacco use Status Tobacco use date assessed 10/11/23 10/11/23 12:42 Patient Tobacco Use Status Never used Tobacco 10/11/23 12:42 e-Cigarette/Vaping Use Never Used 10/11/23 12:42 PHQ-9: PHQ-9 Score PHQ-9: Total score 0 10/11/23 12:51 Depression Screening Interpretation: Negative Thrive Assessment: Date of Thrive Assessment Date Thrive assessed 10/11/23 10/11/23 12:42 Currently or been in a relationship where the following occur: no concerns reported Const Other: General: Well developed, well nourished, in no acute distress. Appears stated age. Head: Normocephalic, atraumatic. Hirsutism Eyes: Pupils are equal, round and reactive to light and accommodation. Conjunctivae are clear. Vision grossly normal. Ears: TMs clear left, scarring noted on the right, EACS WNL Nose: Patent, without discharge. Mouth: There are no ulcers or lesions noted. No inflammation, no post nasal drip, no plaques nor exudates. Neck: Supple, no adenopathy or thyromegaly. Lungs: Clear to auscultation bilaterally. No rales, rhonchi or wheeze noted. Good air flow in all martinez. Heart: Regular rate and rhythm. No murmurs, click, rubs or gallops are noted. Abdomen: Bowel sounds present in all quadrants. The abdomen is soft, nontender, with no masses or organomegaly noted. No hernias are noted. Musculoskeletal: Joints are nontender, without swelling, redness, or effusions. Range of motion is observed to be normal. Pulses: Peripheral pulses are equal and palpable bilaterally. Extremities: No clubbing, cyanosis nor edema is noted. Neurologic: Gait and station normal. Cranial Nerves 2-12 intact. Motor strength grossly symmetrical and intact. No sensory loss. Balance normal. Skin: No rashes, ulcers, or lesions noted. Turgor is good. Skin color is good. Hair and nails are without abnormalities. Psych: Normal eye contact, affect and mood appropriate, and normal interactions. Patient is alert and appropriate to context. Assessment and Plan Assessment & Plan (1) Obesity (BMI 35.0-39.9 without comorbidity): Code(s): E66.9 - Obesity, unspecified (2) PCOS (polycystic ovarian syndrome): Code(s): E28.2 - Polycystic ovarian syndrome (3) COURT (generalized anxiety disorder): Code(s): F41.1 - Generalized anxiety disorder (4) S/P cholecystectomy: Code(s): Z90.49 - Acquired absence of other specified parts of digestive tract (5) Vitamin D deficiency: Code(s): E55.9 - Vitamin D deficiency, unspecified (6) Steatosis, liver: Code(s): K76.0 - Fatty (change of) liver, not elsewhere classified (7) GERD (gastroesophageal reflux disease): Comment: resolved s/p gastric bypass Code(s): K21.9 - Gastro-esophageal reflux disease without esophagitis Qualifiers: Esophagitis presence: without esophagitis Qualified Code(s): K21.9 - Gastro-esophageal reflux disease without esophagitis (8) Morbid obesity due to excess calories: Comment: BMI > 35 Code(s): E66.01 - Morbid (severe) obesity due to excess calories (9) Iron deficiency anemia after gastrectomy: Code(s): K91.89 - Other postprocedural complications and disorders of digestive system; D50.8 - Other iron deficiency anemias Orders: Referrals Metabolic Clinic Referral E66.9 - Obesity, unspecified Endocrinology Referral E28.2 - Polycystic ovarian syndrome DIRECTOR OF STRATEGIC PROGRAMS Referral E28.2 - Polycystic ovarian syndrome Patient Instructions: Plan Refer to endocrinology as well as boring mill operator for PCOS management. Refer to metabolic clinic at [facility] Please take supplements as directed by the bariatric group to help with her iron-deficiency anemia and vitamin-D deficiency Defer labs at this time as this will be done during the metabolic clinic evaluation Hepatic steatosis is usually followed by the bariatric clinic as well Numt-ujj-tgbxqmv meds p.r.n. seasonal allergies Return to the office in 1 year for complete physical exam sooner as needed Walk-In Care (Urgent Care): We Make it Easy Walk-in for urgent medical issues such as: ? Seasonal Allergies ? Insect Bites ? Cough ? Diarrhea ? Acute Asthma Attacks ? Back, Knee or Joint Pain ? Ear Infection ? Fever without a Rash ? Headaches ? Nausea ? [place] Eye, Rash or Skin Irritation ? Sore Throat ? Sports Physicals ? Vomiting Most insurances are accepted. Patients do not need to be part of the [facility] to seek care at the walk-in clinic. Locations [facility] [place] [address] ? [phone] [facility] Walk-In Care in [place] provides services to ages 18 and over. Open Saturday-Saturday: 8 a.m. to 5 p.m. and Saturday: 9 a.m. to 3 p.m.* *Hours may vary due to staffing availability. To confirm Walk-In Care hours in [place], please call [phone]. [address] [place] [address] ? [phone] [facility] Walk-In Care in [place] provides services to ages 12 and over. Open Saturday-Saturday: 8 a.m. to 5 p.m. Hours may vary due to staffing availability. To confirm Walk-In Care hours in [place], please call [phone]. LABORATORY SERVICES: [facility] Lab ? Primary Location [address] [place] [address] Saturday through Saturday 6:00 AM ? 5:00 PM Saturday 7:00 AM ? 11:00 AM* [phone] The [facility] Lab is centrally located near the front entrance of the [facility] for easy outpatient access. Convenient parking is provided for outpatients. *Hours may vary due to staffing availability. To confirm Laboratory hours for any location, please call [phone]. Offsite Location For your convenience, we offer offsite laboratory draw stations at the following locations: [address] [place] [address] ? [facility] [address], [address] Saturday through Saturday 7:30 AM ? 1:00 PM* [phone] *Hours may vary due to staffing availability. To confirm Laboratory hours for any location, please call [phone]. [place] ? [address] Saturday through Saturday 6:00 AM ? 3:30 PM* Saturday 6:30 AM ? 3 PM* [phone] *Hours may vary due to staffing availability. To confirm Laboratory hours for any location, please call [phone]. [address] [facility] Saturday through Saturday 7:30 AM ? 4:00 PM* [phone] *Hours may vary due to staffing availability. To confirm Laboratory hours for any location, please call [phone]. [address] [facility] Saturday through 9:00 AM ? 4:00 PM* *Hours may vary due to staffing availability. To confirm Laboratory hours for any location, please call [phone]. Appointments are not necessary. Walk-ins are welcome. Like all the departments throughout the [facility], our Lab undergoes frequent reviews to ensure the quality and accuracy of test results, and our [facility] takes special pride in its status as a nationally accredited facility. Patient Portal: ONE PATIENT. ONE RECORD. BETTER CARE. [facility] has a fully integrated, cutting- edge mobile electronic health information system that has revolutionized the way we care for our patients and manage our organization. This system improves communication and coordination enabling us to provide safe, higher-quality care, and an overall positive experience for staff and patients. Our first priority, as always, is to deliver the highest quality care possible. The system is running in the background supporting that priority. This portal is for all [facility] services and practices. If you are experiencing any technical difficulties with enrolling or logging into the Patient Portal please complete the [facility] Patient Portal Technical Support Form. [facility] now offers a new secure on-line interactive tool for patients to review their health information ? ?Patient Portal. This interactive web portal will enable patients and their families to take an active role in their care by providing easy, secure access to their health information via the internet. The Patient Portal provides patients with instant access to their health information, including laboratory results, medications, allergies, demographic information, visit history, and more. In addition to managing their own care, parents and health care proxies with authorized consent will appreciate the ability to access the records of those individuals for whom they provide care. Please note: if you wish to gain access (Proxy) to another patient?s portal, you will be required to come to the Medical Records Department in person at [facility]. Both the patient giving proxy access and the proxy will need to provide photo identification and complete the appropriate authorization. The Patient Portal also allows track their appointments online. The [facility] Patient Portal also saves patients time by allowing them to submit updates to their demographic and contact information prior to their visits. Portal email notifications will also alert patients to any new activity on their portal, such as test results and new appointments. In order to initially enroll in the [facility] Patient Portal, you will need to enter some required information including the following: * your [facility] Medical Record number * your personal home email address * name * date of Please note: In order to enroll in the [facility] Patient Portal, we need to have your email address on file in your electronic medical record. ?The email address needs to be specific for one person (yourself) in order for your Portal enrollment to be successful. ?You can update your email address in person with our Registration staff when you are registering for a hospital visit. ?Otherwise, you will need to come to the Health Information Management (Medical Records) Department at [facility]. ?We are open from Saturday ? Saturday from 7:30 a.m. ? 4:30 p.m. ?You will be required to present a photo id. Once you have successfully enrolled in the Patient Portal, you will receive a one-time user id and password for the Portal, sent to your email address. ?This will allow you to log into the Patient Portal within 99 hrs and reset your own logon id and password, and define personal security questions. ?Once your permanent login and password have been set, you can log into the [facility] Patient Portal at any time via the blue button above or from the Portal Logon button on any page of the [facility] website. [facility] encourage all of our patients to enroll in Patient Portal as it presents a valuable opportunity for patients and their families to actively participate in their care and stay healthy Welcome to [facility]. ?We look forward to working with you. Health screenings for women You should visit your health care provider from time to time, even if you are healthy. The purpose of these visits is to: Screen for medical issues Assess your risk for future medical problems Encourage a healthy lifestyle Update vaccinations and other preventive care services Help you get to know your provider in case of an illness Information Even if you feel fine, you should still see your provider for regular checkups. These visits can help you avoid problems in the future. For example, the only way to find out if you have high blood pressure is to have it checked regularly. High blood sugar and high cholesterol levels also may not have any symptoms in the early stages. A simple blood test can check for these conditions. There are specific times when you should see your provider or receive specific health screenings. The [place] Preventive Services Task Force publishes a list of recommended screenings. Below are screening guidelines for women ages 18 to 39. BLOOD PRESSURE SCREENING Your blood pressure should be checked at least once every 3 to 5 years if: Your blood pressure is in the normal range (top number less than 120 mm Hg and bottom number less than 80 mm Hg) You don't have risk factors for high blood pressure Ask your provider if you need your blood pressure checked more often if: The top number is 120 to 129 mm Hg or the bottom number is 70 to 79 mm Hg You have diabetes, heart disease, kidney problems, are overweight, or have certain other health conditions You have a first-degree relative with high blood pressure You are Black You had high blood pressure during a If the top number is 130 mm Hg or greater or the bottom number is 80 mm Hg or greater, this is considered stage 1 hypertension. Schedule an appointment with your provider to learn how you can reduce your blood pressure. Watch for blood pressure screenings in your area. Ask your provider if you can stop in to have your blood pressure checked. BREAST CANCER SCREENING Experts do not agree about the benefits of breast self-exams in finding breast cancer or saving lives. Talk to your provider about what is best for you. A screening mammogram is not recommended for most women under age 40. Your provider may discuss and recommend mammograms, MRI scans, or ultrasounds if you have an increased risk for breast cancer, such as: A mother or sister who had breast cancer at a young age (most often starting screening earlier than the age the close relative was diagnosed) You carry a high-risk genetic marker CERVICAL CANCER SCREENING Cervical cancer screening should start at age 21 years unless your provider advises otherwise. After the first test: Women ages 21 through 29 should have a Pap test every 3 years. Exoprts do not agree on whether HPV testing is recommended for this age group. Women ages 30 through 65 should be screened with either a Pap test every 3 years or the HPV test every 5 years or both tests every 5 years (called cotesting ). Women who have been treated for precancer (cervical dysplasia) should continue to have Pap tests for 20 years after treatment or until age 65, whichever is longer. If you have had your uterus and cervix removed (total hysterectomy), and you have not been diagnosed with cervical cancer or precancer (high grade cervical neoplasia), you do not need cervical cancer screening. CHOLESTEROL SCREENING Cholesterol screening should begin at: Age 45 for women with no known risk factors for coronary heart disease Age 20 for women with known risk factors for coronary heart disease Repeat cholesterol screening should take place: Every 5 years for women with normal cholesterol levels More often if changes occur in lifestyle (including weight gain and diet) More often if you have diabetes, heart disease, kidney problems, or certain other conditions DIABETES SCREENING You should be screened for diabetes starting at age 35 and then repeated every 3 years if you have no risk factors for diabetes. Screening may need to start earlier and be repeated more often if you have other risk factors for diabetes, such as: You have a first degree relative with diabetes. You are overweight or have obesity. You have high blood pressure, prediabetes, or a history of heart disease. Screening for diabetes should be done if you are planning to become and you are overweight and have other risk factors such as high blood pressure. DENTAL EXAM Go to the dentist once or twice every year for an exam and cleaning. Your dentist will evaluate if you need more frequent visits. EYE EXAM Have an eye exam every 5 to 10 years before age 40. If you have vision problems, have an eye exam every 2 years or more often if recommended by your provider. You should have an eye exam that includes an examination of your retina (back of your eye) at least every year if you have diabetes. IMMUNIZATIONS Commonly needed vaccines include: Flu shot: get one every year. COVID-19 vaccine: ask your provider what is best for you. Tetanus-diphtheria and acellular pertussis (Tdap) vaccine: have one at or after age 19 as one of your tetanus-diphtheria vaccines if you did not receive it as an adolescent. Tetanus-diphtheria: have a booster (or Tdap) every 10 years. Varicella vaccine: receive 2 doses if you never had chickenpox or the varicella vaccine. Hepatitis B vaccine: receive 2, 3, or 4 doses, depending on your exact circumstances. Measles, mumps, and rubella (MMR) vaccine: receive 1 to 2 doses if you are not already immune to MMR. Your provider can tell you if you are immune. Ask your provider about the human papillomavirus (HPV) vaccine if: You have not received the HPV vaccine in the past You have not completed the full vaccine series (you should catch up on this shot) Ask your provider if you should receive other immunizations if you have certain health problems that increase your risk for some diseases such as pneumonia. INFECTIOUS DISEASE SCREENING Women who are sexually active should be screened for chlamydia and gonorrhea up until age 25. Women 25 years and older should be screened for chlamydia and gonorrhea if at high risk. Screening for hepatitis C: All adults ages 18 to 79 should get a one-time test for hepatitis C. people should be screened at every . Screening for human immunodeficiency virus (HIV): All people ages 15 to 65 should get a one-time test for HIV. Depending on your lifestyle and medical history, you may also need to be screened for infections such as syphilis and HIV, as well as other infections. PHYSICAL EXAM All adults should visit their provider from time to time, even if they are healthy. The purpose of these visits is to: Screen for disease Assess your risk of future medical problems Encourage a healthy lifestyle Update your vaccinations and other preventive care services Maintain a relationship with a provider in case of an illness Your height, weight, and BMI should be checked at every exam. During your exam, your provider may ask you about: Depression and anxiety Diet and exercise Alcohol and tobacco use Safety issues, such as using seat belts, smoke detectors, and intimate partner violence Your medicines and risk for interactions SKIN SELF-EXAM Your provider may check your skin for signs of skin cancer, especially if you're at high risk, such as if you: Have had skin cancer before Have close relatives with skin cancer Have a weakened immune system OTHER SCREENING Talk with your provider about colon cancer screening if you have a strong family history of colon cancer or polyps, or if you have had inflammatory bowel disease or polyps yourself. Routine bone density screening of women under 40 is not recommended. 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
== END 2023-10-11 13:19 | disposition home or self-care (01) ==
PROVIDERS: Visit Provider Nurse Practitioner Family
DX: Z00.00 Encounter for general adult medical examination without abnormal findings (principal); E66.01 Morbid (severe) obesity due to excess calories; Z68.35 Body mass index [BMI] 35.0-35.9, adult; Z23 Encounter for immunization; E28.2 Polycystic ovarian syndrome; F41.1 Generalized anxiety disorder; Z90.49 Acquired absence of other specified parts of digestive tract; E55.9 Vitamin D deficiency, unspecified; K76.0 Fatty (change of) liver, not elsewhere classified; K21.9 Gastro-esophageal reflux disease without esophagitis; K91.89 Other postprocedural complications and disorders of digestive system; D50.8 Other iron deficiency anemias
CPT/HCPCS: 90471; 90715; 99395

== ENCOUNTER 2024-10-14 12:09 | Outpatient (AMB) | payer OTHER, SELFPAY ==
--- NOTE | 2024-10-14 12:11 | MHC.PC.OV ---
Vital Signs 10/14/24 12:16 Height 5 ft 7 in Weight 236 lb BMI 37.0 BP 102/66 Blood Pressure Location Rt brachial Position Sitting Respiration 12 Pulse 84 Pulse Source Pulse Oximeter Temp 97.2 F Temp Source Oral Pulse Oximetry (%) 99 Oxygen Delivery Method Room Air Intake Visit Reasons: 1 year CPE Intake Note: CPE Reporting Process Consultant Required: No Allergies patterson Allergy (Severe, Verified 10/14/24 12:27) Shortness of Breath Fruit Allergy (Intermediate, Uncoded 10/14/24 12:11) Itching Seasonal Allergies Allergy (Intermediate, Uncoded 10/14/24 12:11) itching Medication List - Last Reconciled 10/14/24 by PAULINE Kuhn No Known Home Meds Tobacco use date assessed: 10/14/24 Dental Screening Dental Screen Date: 10/14/24 Did you have a dental visit in the last 12 months?: No Did you have a dental problem in the last 6 months where you did not have access to dental care?: No Was dental information given to patient?: Yes HPI HPI Comments History of Present Illness Details 24-year-old female with PCOS, morbid obesity, GERD, vitamin-D deficiency, hepatic steatosis, pancreatitis, generalized anxiety disorder, seasonal allergies, 18 mm dermoid cyst within the right ovary, iron def anemia Status post laparoscopic sleeve gastrectomy, repair of paraesophageal hernia, cholecystectomy, tonsils and adenoids Fhx: Mom w/ ovarian cysts Social: 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 Health Maintenance: Pap @ [facility] 09/2023 reports Tdap 2023 Specialists: SECURITY SHIFT SUPER[facility] Endo Here today CPE. Vitamin-D deficiency and iron-deficiency anemia reports that she is supposed to be taking supplements for this but often forgets. Generalized anxiety disorder not currently on any medications and not currently in therapy. Denies any symptoms today. Would like counseling referral. Hepatic steatosis denies any GI complaints. GERD resolved s/p gastric surgery Seasonal allergies uses [id number] medications with positive effects. Morbid obesity: Records indicate that she had a laparoscopic sleeve gastrectomy at [facility]. However she reports to me today that she had a complete gastric bypass done 06/11/2023 at [place]. I do not have any records on this. Be that as it may she is complaining that her weight has plateaued. Started to buy GLP1 OTC got too expensive, wants to cont. PCOS - did not fu with endo or analysis specialist from last year Plan Refer to counseling Refer to endocrinology as well as inspector subassembly for PCOS management. Refer to [facility] Please take supplements as directed by the bariatric group to help w iron-deficiency anemia and vitamin-D deficiency Defer labs at this time as this will be done during the [facility] clinic evaluation Hepatic steatosis is usually followed by the [facility] clinic as well [id number] meds p.r.n. seasonal allergies Return to the office in 1 year for complete physical exam sooner as needed [facility] Medical History Acute pancreatitis Obesity (BMI 35.0-39.9 without comorbidity) Vitamin D deficiency Amenorrhea Back pain Steatosis, liver Anxiety Recent URI GERD (gastroesophageal reflux disease) Morbid obesity Anemia Seasonal allergies Surgical History S/P repair of paraesophageal hernia S/P laparoscopic sleeve gastrectomy S/P cholecystectomy H/O gastric bypass History of bariatric surgery Hx of adenoidectomy Hx of tonsillectomy Family History (Updated 10/14/24 @ 12:12 by Maria Teresa Pulido MA) Father HTN (hypertension) Mother Arthritis HTN (hypertension) Brother No problems noted. Sister No problems noted. Sister No problems noted. Sister No problems noted. Sister No problems noted. Sister No problems noted. Sister No problems noted. Sister No problems noted. 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 1. Little interest or pleasure in doing things: several days 2. Feeling down, depressed, or hopeless: not at all 3. Trouble falling or staying asleep, or sleeping too much: several days 4. Feeling tired or having little energy: several days 5. Poor appetite or overeating: more than half the days 6. Feeling bad about yourself - or that you are a failure or have let yourself or your family down: not at all 7. Trouble concentrating on things, such as reading the newspaper or watching television: not at all 8. Moving or speaking so slowly that other people could have noticed. Or the opposite - being so fidgety or restless that you have been moving around a lot more than usual: not at all 9. Thoughts that you would be better off or of hurting yourself in some way: not at all Total score: 5 Depression Screening Interpretation: Positive Depression Screening Follow-up: Existing condition and Declines treatment Depression Screening Done: Yes 23204 - PHQ-9 Billing: Yes Source: Developed by Drs. Armando Vasquez, Sadie Villalpando, Jacob Talbot and colleagues, with an educational mike from [employer]. Thrive Questionnaire Date Thrive assessed: 10/14/24 I am a: Patient What is your living situation today?: I have a steady place to live Within the past 12 months, did the food you bought not last and you didn't have the money to get more?: I choose not to answer this question Within the past 12 months, did you worry whether your food would run out before you got money to buy more?: I choose not to answer this question Do you have trouble paying for medicines?: I choose not to answer this question Do you have trouble getting transportation to medical appointments?: No Do you have trouble paying your heating and electricity bill?: I choose not to answer this question Do you have trouble taking care of your child, family member or friend?: No Do you have trouble with day-to-day activities such as bathing, preparing meals, shopping, managing finances, etc.?: No Are you currently unemployed and looking for a job?: No Are you interested in more education?: Yes Please select the resources that you would like help with: Paying for medicine Currently or been in a relationship where the following occur: No concerns reported THRIVE Score: 0 AUDIT C Alcohol Use Questionnaire (AUDIT-C) 1. How often do you have a drink containing alcohol?: Monthly or less 2. How many drinks containing alcohol do you have on a typical day when you are drinking?: 1 or 2 3. How often do you have six or more drinks on one occasion?: Less than monthly Total Score: 2 Score Reviewed/Action Taken: Yes COURT-[address] Date [address] - 7 assessed: 10/14/24 Feeling nervous, anxious, or on edge: 0 = Not at all Not being able to stop or control worryin = Several days Worrying too much about different things: 0 = Not at all Trouble relaxin = Not at all Being so restless that it is hard to sit still: 1 = Several days Becoming easily annoyed or irritable: 1 = Several days Feeling afraid as if something awful might happen: 0 = Not at all Total COURT-7 score (0-4 normal; 5-9 mild; 10-14 moderate; 15-21 severe): 3 Source: Developed by Drs. Armando Vasquez, Sadie Villalpando, Jacob Talbot and colleagues, with an educational mike from [employer]. COURT-[address]-7 Assessment Tool: COURT-7 Assessment 78277 Review of Systems Const Details: Constitutional: Denies fever. Skin: Denies rash. Eye: Denies eye pain. ENMT: Denies sore throat and nasal congestion. Respiratory: Denies shortness of breath and cough. Gastrointestinal: Denies nausea, vomiting or abdominal pain. Cardiovascular: Denies chest pain and syncope. Genitourinary: Denies dysuria. Musculoskeletal: Denies back pain and extremity pain. Neurologic: Denies headaches, confusion, and weakness. Psychiatric: Denies suicidal thoughts and substance abuse. Allergy/ Immunologic: Denies impaired immunity. Physical exam (Primary Care) Vital Signs: Last Vital Signs Temp 97.2 F 10/14/24 12:16 Pulse 84 10/14/24 12:16 Resp 12 10/14/24 12:16 BP 102/66 10/14/24 12:16 Pulse Ox 99 10/14/24 12:16 Oxygen Delivery Method Room Air 10/14/24 12:16 BMI result Body Mass Index 37.0 BMI Assessment/Plan discussion: High BMI High, discussed plan: lifestyle Tobacco/Smoking Status: Tobacco use Status Tobacco use date assessed 10/14/24 10/14/24 12:18 Patient Tobacco Use Status Never used Tobacco 10/14/24 12:18 e-Cigarette/Vaping Use Never Used 10/14/24 12:18 PHQ-9: PHQ-9 Score PHQ-9: Total score 5 10/14/24 12:29 Depression Screening Interpretation: Positive Depression Screening Follow-up: Existing condition and Declines treatment Thrive Assessment: Date of Thrive Assessment Date Thrive assessed 10/14/24 10/14/24 12:18 Currently or been in a relationship where the following occur: No concerns reported Const Other: General: Well developed, well nourished, in no acute distress. Appears stated age. Head: Normocephalic, atraumatic. Hirsutism Eyes: Pupils are equal, round and reactive to light and accommodation. Conjunctivae are clear. Vision grossly normal. Ears: TMs clear left, scarring noted on the right, EACS WNL Nose: Patent, without discharge. Mouth: There are no ulcers or lesions noted. No inflammation, no post nasal drip, no plaques nor exudates. Neck: Supple, no adenopathy or thyromegaly. Lungs: Clear to auscultation bilaterally. No rales, rhonchi or wheeze noted. Good air flow in all martinez. Heart: Regular rate and rhythm. No murmurs, click, rubs or gallops are noted. Abdomen: Bowel sounds present in all quadrants. The abdomen is soft, nontender, with no masses or organomegaly noted. No hernias are noted. Musculoskeletal: Joints are nontender, without swelling, redness, or effusions. Range of motion is observed to be normal. Pulses: Peripheral pulses are equal and palpable bilaterally. Extremities: No clubbing, cyanosis nor edema is noted. Neurologic: Gait and station normal. Cranial Nerves 2-12 intact. Motor strength grossly symmetrical and intact. No sensory loss. Balance normal. Skin: No rashes, ulcers, or lesions noted. Turgor is good. Skin color is good. Hair and nails are without abnormalities. Psych: Normal eye contact, affect and mood appropriate, and normal interactions. Patient is alert and appropriate to context. 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 K91.89; D50.[address]-7 Assessment Billing - COURT-7 Assessment Tool: COURT-7 Assessment [id number] ([id number]) PHQ-9 - 96418 - PHQ-9 Billing: Yes ([id number]) Assessment & Plan Assessment & Plan (1) Normal physical exam: Onset Date: ~10/14/24 Code(s): Z00.00 - Encounter for general adult medical examination without abnormal findings Category: Medical (2) COURT (generalized anxiety disorder): Code(s): F41.1 - Generalized anxiety disorder Category: Medical (3) PCOS (polycystic ovarian syndrome): Code(s): E28.2 - Polycystic ovarian syndrome Category: Medical (4) Morbid obesity due to excess calories: Comment: BMI > 35 Code(s): E66.01 - Morbid (severe) obesity due to excess calories Category: Medical (5) Vitamin D deficiency: Code(s): E55.9 - Vitamin D deficiency, unspecified Category: Medical (6) GERD (gastroesophageal reflux disease): Comment: resolved s/p gastric bypass Code(s): K21.9 - Gastro-esophageal reflux disease without esophagitis Category: Medical Qualifiers: Esophagitis presence: without esophagitis Qualified Code(s): K21.9 - Gastro-esophageal reflux disease without esophagitis (7) Steatosis, liver: Code(s): K76.0 - Fatty (change of) liver, not elsewhere classified Category: Medical (8) Iron deficiency anemia after gastrectomy: Code(s): K91.89 - Other postprocedural complications and disorders of digestive system; D50.8 - Other iron deficiency anemias Category: Medical Plan . Orders: Referrals Medical Weight Management Referral E66.01 - Morbid (severe) obesity due to excess calories LABORATORY APPARATUS GLASS BLOWER Referral Z12.4 - Encounter for screening for malignant neoplasm of cervix Nurse Navigator Referral F41.1 - Generalized anxiety disorder Endocrinology Referral E28.2 - Polycystic ovarian syndrome Patient Instructions: Health screenings for women You should visit your health care provider from time to time, even if you are healthy. The purpose of these visits is to: Screen for medical issues Assess your risk for future medical problems Encourage a healthy lifestyle Update vaccinations and other preventive care services Help you get to know your provider in case of an illness Information Even if you feel fine, you should still see your provider for regular checkups. These visits can help you avoid problems in the future. For example, the only way to find out if you have high blood pressure is to have it checked regularly. High blood sugar and high cholesterol levels also may not have any symptoms in the early stages. A simple blood test can check for these conditions. There are specific times when you should see your provider or receive specific health screenings. The [place] Preventive Services Task Force publishes a list of recommended screenings. Below are screening guidelines for women ages 18 to 39. BLOOD PRESSURE SCREENING Your blood pressure should be checked at least once every 3 to 5 years if: Your blood pressure is in the normal range (top number less than 120 mm Hg and bottom number less than 80 mm Hg) You don't have risk factors for high blood pressure Ask your provider if you need your blood pressure checked more often if: The top number is 120 to 129 mm Hg or the bottom number is 70 to 79 mm Hg You have diabetes, heart disease, kidney problems, are overweight, or have certain other health conditions You have a first-degree relative with high blood pressure You are Black You had high blood pressure during a If the top number is 130 mm Hg or greater or the bottom number is 80 mm Hg or greater, this is considered stage 1 hypertension. Schedule an appointment with your provider to learn how you can reduce your blood pressure. Watch for blood pressure screenings in your area. Ask your provider if you can stop in to have your blood pressure checked. BREAST CANCER SCREENING Experts do not agree about the benefits of breast self-exams in finding breast cancer or saving lives. Talk to your provider about what is best for you. A screening mammogram is not recommended for most women under age 40. Your provider may discuss and recommend mammograms, MRI scans, or ultrasounds if you have an increased risk for breast cancer, such as: A mother or sister who had breast cancer at a young age (most often starting screening earlier than the age the close relative was diagnosed) You carry a high-risk genetic marker CERVICAL CANCER SCREENING Cervical cancer screening should start at age 21 years unless your provider advises otherwise. After the first test: Women ages 21 through 29 should have a Pap test every 3 years. Exoprts do not agree on whether HPV testing is recommended for this age group. Women ages 30 through 65 should be screened with either a Pap test every 3 years or the HPV test every 5 years or both tests every 5 years (called cotesting ). Women who have been treated for precancer (cervical dysplasia) should continue to have Pap tests for 20 years after treatment or until age 65, whichever is longer. If you have had your uterus and cervix removed (total hysterectomy), and you have not been diagnosed with cervical cancer or precancer (high grade cervical neoplasia), you do not need cervical cancer screening. CHOLESTEROL SCREENING Cholesterol screening should begin at: Age 45 for women with no known risk factors for coronary heart disease Age 20 for women with known risk factors for coronary heart disease Repeat cholesterol screening should take place: Every 5 years for women with normal cholesterol levels More often if changes occur in lifestyle (including weight gain and diet) More often if you have diabetes, heart disease, kidney problems, or certain other conditions DIABETES SCREENING You should be screened for diabetes starting at age 35 and then repeated every 3 years if you have no risk factors for diabetes. Screening may need to start earlier and be repeated more often if you have other risk factors for diabetes, such as: You have a first degree relative with diabetes. You are overweight or have obesity. You have high blood pressure, prediabetes, or a history of heart disease. Screening for diabetes should be done if you are planning to become and you are overweight and have other risk factors such as high blood pressure. DENTAL EXAM Go to the dentist once or twice every year for an exam and cleaning. Your dentist will evaluate if you need more frequent visits. EYE EXAM Have an eye exam every 5 to 10 years before age 40. If you have vision problems, have an eye exam every 2 years or more often if recommended by your provider. You should have an eye exam that includes an examination of your retina (back of your eye) at least every year if you have diabetes. IMMUNIZATIONS Commonly needed vaccines include: Flu shot: get one every year. COVID-19 vaccine: ask your provider what is best for you. Tetanus-diphtheria and acellular pertussis (Tdap) vaccine: have one at or after age 19 as one of your tetanus-diphtheria vaccines if you did not receive it as an adolescent. Tetanus-diphtheria: have a booster (or Tdap) every 10 years. Varicella vaccine: receive 2 doses if you never had chickenpox or the varicella vaccine. Hepatitis B vaccine: receive 2, 3, or 4 doses, depending on your exact circumstances. Measles, mumps, and rubella (MMR) vaccine: receive 1 to 2 doses if you are not already immune to MMR. Your provider can tell you if you are immune. Ask your provider about the human papillomavirus (HPV) vaccine if: You have not received the HPV vaccine in the past You have not completed the full vaccine series (you should catch up on this shot) Ask your provider if you should receive other immunizations if you have certain health problems that increase your risk for some diseases such as pneumonia. INFECTIOUS DISEASE SCREENING Women who are sexually active should be screened for chlamydia and gonorrhea up until age 25. Women 25 years and older should be screened for chlamydia and gonorrhea if at high risk. Screening for hepatitis C: All adults ages 18 to 79 should get a one-time test for hepatitis C. people should be screened at every . Screening for human immunodeficiency virus (HIV): All people ages 15 to 65 should get a one-time test for HIV. Depending on your lifestyle and medical history, you may also need to be screened for infections such as syphilis and HIV, as well as other infections. PHYSICAL EXAM All adults should visit their provider from time to time, even if they are healthy. The purpose of these visits is to: Screen for disease Assess your risk of future medical problems Encourage a healthy lifestyle Update your vaccinations and other preventive care services Maintain a relationship with a provider in case of an illness Your height, weight, and BMI should be checked at every exam. During your exam, your provider may ask you about: Depression and anxiety Diet and exercise Alcohol and tobacco use Safety issues, such as using seat belts, smoke detectors, and intimate partner violence Your medicines and risk for interactions SKIN SELF-EXAM Your provider may check your skin for signs of skin cancer, especially if you're at high risk, such as if you: Have had skin cancer before Have close relatives with skin cancer Have a weakened immune system OTHER SCREENING Talk with your provider about colon cancer screening if you have a strong family history of colon cancer or polyps, or if you have had inflammatory bowel disease or polyps yourself. Routine bone density screening of women under 40 is not recommended.
[2024-10-14 12:16] VITALS: BP 102/66; PULSE 84; RESP 12; TEMP 36.2; O2SAT 99; BMI 37.0
== END 2024-10-14 12:47 | disposition home or self-care (01) ==
PROVIDERS: PCP Nurse Practitioner Family; Visit Provider Nurse Practitioner Family
DX: Z00.00 Encounter for general adult medical examination without abnormal findings (principal); F41.1 Generalized anxiety disorder; E66.01 Morbid (severe) obesity due to excess calories; Z68.37 Body mass index [BMI] 37.0-37.9, adult; E28.2 Polycystic ovarian syndrome; E55.9 Vitamin D deficiency, unspecified; K21.9 Gastro-esophageal reflux disease without esophagitis; K76.0 Fatty (change of) liver, not elsewhere classified; K91.89 Other postprocedural complications and disorders of digestive system; D50.8 Other iron deficiency anemias

== ENCOUNTER → 2024-10-14 12:09 | Outpatient (BNVA) | payer OTHER, SELFPAY | PROVIDERS: PCP Nurse Practitioner Family; Visit Provider Nurse Practitioner Family | DX: Z00.00 Encounter for general adult medical examination without abnormal findings (principal); E28.2 Polycystic ovarian syndrome; E55.9 Vitamin D deficiency, unspecified; F41.1 Generalized anxiety disorder; J30.2 Other seasonal allergic rhinitis; K21.9 Gastro-esophageal reflux disease without esophagitis; K76.0 Fatty (change of) liver, not elsewhere classified; K91.89 Other postprocedural complications and disorders of digestive system; D50.8 Other iron deficiency anemias; E66.01 Morbid (severe) obesity due to excess calories; Z98.84 Bariatric surgery status; Z68.37 Body mass index [BMI] 37.0-37.9, adult | CPT/HCPCS: 96127 ==

== ENCOUNTER 2024-10-14 13:00 | Outpatient (REF) | payer OTHER, SELFPAY ==
[2024-10-15 06:28] LABS: DHEA Sulfate 124 mcg/dL (14-349)
[2024-10-19 13:34] LABS: Testosterone, Free 2.9 pg/mL (0.1-6.4); Testosterone, Total 36 ng/dL (2-45)
== END 2024-10-14 13:01 | disposition home or self-care (01) ==
LOC: HO.WFDLDS 13:00
PROVIDERS: Visit Provider Internal Medicine Endocrinology, Diabetes & Metabolism
DX: E28.2 Polycystic ovarian syndrome (principal)
CPT/HCPCS: 36415; 82627; 83498; 84146; 84402; 84403

== ENCOUNTER 2024-10-20 10:03 | Outpatient (AMB) | payer OTHER, SELFPAY ==
--- NOTE | 2024-10-20 10:11 | A.OFFVIS_ITS ---
VS Expanded 10/20/24 10:16 BP 109/69 Blood Pressure Location Lt brachial Blood Pressure Position Sitting Pulse 69 Temp 97.8 F Pulse Oximetry 98 Height 5 ft 7 in Weight 235 lb 9.6 oz BMI 36.9 Body Fat % 42.2 Body Fat Mass 99.2 Fat Free Mass 136.0 Visceral Fat Rating 8.0 Body Water % 41.6 Body Water Mass 97.8 Muscle Mass/Score 129.2 Basal Metabolic Rate/Score 1,943 Intake Visit Reasons: OV PO LSG 05/24/20 - GLP-1 meds Reception Centre Manager Required: No Allergies patterson Allergy (Severe, Verified 10/20/24 10:13) Shortness of Breath Fruit Allergy (Intermediate, Uncoded 10/20/24 10:13) Itching Seasonal Allergies Allergy (Intermediate, Uncoded 10/20/24 10:13) itching Medication List - Last Reconciled 10/20/24 by VINICIUS Ayala No Known Home Meds HPI Comments Details: This?is a?24?yo F who is s/p LSG 05/24/2020. Pt also reports today that she underwent gastric bypass at [facility] in 2023 (Dr. Clifford). Reports she is doing well from this. Weight loss of 16.6lbs since last OV in Dec 2021. No complaints of nausea, emesis, abdominal pain or reflux, or constipation. Pt reports she had previously been on tirzepatide for 2 months previously; was self pay. Present meal plan includes: drinks coffee, will add Premier Protein shake in AM will have fruits throughout the day small lunch- small chicken breast will try to cook meats for dinner if she has carbs will measure out with her food scale was thrown off regular meal schedule due to moving recently [facility] Medical History Acute pancreatitis Obesity (BMI 35.0-39.9 without comorbidity) Vitamin D deficiency Amenorrhea Back pain Steatosis, liver Anxiety Recent URI GERD (gastroesophageal reflux disease) Morbid obesity Anemia Seasonal allergies Surgical History (Updated 10/20/24 @ 10:23 by VINICIUS Ayala) S/P repair of paraesophageal hernia S/P laparoscopic sleeve gastrectomy S/P cholecystectomy H/O gastric bypass History of bariatric surgery Hx of adenoidectomy Hx of tonsillectomy Family History (Updated 10/20/24 @ 10:16 by MELO Chand) Father HTN (hypertension) Mother Arthritis HTN (hypertension) Brother No problems noted. Sister No problems noted. Sister No problems noted. Sister No problems noted. Sister No problems noted. Sister No problems noted. Sister No problems noted. Sister No problems noted. 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 Reviewed contraindications, discussed dosing. Discussed need for adequate protein intake while on GLP1s as well as frequent communication with our office. Pt will check in with me weekly and is aware that subsequent Rx will be dependent on frequent communication. Also gave pt RightBMI ignacia info and encouraged her to download to ensure adequate protein intake. RTC 3mo. Medications: New Zepbound (tirzepatide (weight loss)) for 4 weeks 2.5 mg (0.5 mL) subcut QWEEK 2 mL 0RF NS
[2024-10-20 10:16] VITALS: BP 109/69; PULSE 69; TEMP 36.6; O2SAT 98; BMI 36.9
--- OUTSIDE RECORDS SUMMARY | 2024-10-20 11:06 | XMS_ITS | Clinical Summary ---
Author Organization [address] [place] [address] [place] [phone] Phone Care Team Providers Care Paid Search Marketing Strategist Name Role Phone Quinton Bryan MD Primary Care Provider [phone] Allergies Active Allergy Reactions Criticality Noted Date Comments Goodrich Hives,Swelling 08/22/2022 Medications wheat dextrin (Benefiber Healthy Shape) 5 gram/7.4 gram powder Take 4 g by mouth daily. 06/25/2023 Active cetirizine (ZyrTEC) 10 mg tablet Take 1 Tablet by mouth daily. Active Active Problems Problem Noted Date Diagnosed Date Class 2 obesity with body ma ss index (BMI) of 38.0 to 38.9 in adult 03/26/2024 Dizziness 11/08/2022 Overview (03/26/2024): Last Assessment & Plan: We did discuss her dizziness. This is likely due to mild orthostasis. This is brought on by taking a hot shower. We did discuss increasing her fluid intake and taking showers are not as hot or as long. We also discussed getting up slowly when seated for long periods of time. If this worsen she will let us know. Abnormal EKG 11/05/2022 Bradycardia 11/05/2022 Overview (03/26/2024): Last Assessment & Plan: We did discuss her bradycardia. It is likely that she has bradycardia she is young and overall healthy. We also discussed that sleep apnea could be contributing to this as well. She has been referred for sleep study. She is generally asymptomatic. She has no symptoms to suggest her low heart rate is causing any problems. We did however discuss doing a Holter monitor and echocardiogram to further evaluate to make sure she is completely safe especially if she is planned for any upcoming surgery. We will call her with the results of both of these test. Surgical History Surgery Date Site/Laterality Comments CHOLECYSTECTOMY N/A PROCEDURE: [place] LAPAROSCOPY SURG CHOLECYSTECTOMY BARIATRIC SURGERY N/A PROCEDURE: [place] LAPS GSTRC RSTRICTIV PX LONGITUDINAL GASTRECTOMY Social History Tobacco Use Types Packs/Day Years Used Date Smoking Tobacco: Never Smokeless Tobacco: Current Alcohol Use Standard Drinks/Week Comments Not Currently 0 (1 standard drink = 0.6 oz pur e alcohol) Comments Unknown Sex and Gender Information Value Date Recorded Sex Assigned at Not on file Legal Sex Female 8:19 PM EST Gender Identity Not on file Sexual Orientation Not on file Obstetrics History Last Filed Vital Signs Vital Sign Reading Time Taken Comments Blood Pressure 104/71 07/18/2023 11:44 AM EDT Pulse 71 07/18/2023 11:44 AM EDT Temperature - - Respiratory Rate - - Oxygen Saturation - - Inhaled Oxygen Concentration - - Weight 110 kg (243 lb) 07/29/2023 12:45 PM EDT Height 170.2 cm (5' 7 ) 07/18/2023 11:44 AM EDT Body Mass Index 38.06 07/18/2023 11:44 AM EDT Plan of Treatment Upcoming Encounters Date Type Department Care Team (Late st Contact Info) Description 12/22/2024 3:15 PM EDT Office Visit Bariatric Surgery - [place] [address] [id number] Hilda Chester MD 175 [facility] [address] [place] [address] Health Maintenance Due Date Last Done Comments Gonorrhea/Chlamydia Screening 2000 HPV Vaccines (1 - 3-dose series) 08/09/2015 DTaP,Tdap,and Td Vaccines (1 - Tdap) 08/09/2019 Hepatitis B Vaccines (1 of 3 - 19+ 3-dose series) 08/09/2019 Cervical Cancer Screening: P ap Smear 2021 Depression Screening 05/16/2023 HIV Screening 05/16/2023 Hepatitis C Screening 05/16/2023 Social Influencers of Health Screening 05/16/2023 COVID-19 Vaccine (1 - 2023-2 5 season) 2023 Influenza Vaccine (Season Ended) 2024 Cholesterol Screening (Lipid Panel) 08/23/2027 08/22/2022 HIB Vaccines Aged Out No longer eligi ble based on patient's age to complete this topic Hepatitis A Vaccines Aged Out No long er eligible based on patient's age to complete this topic IPV Vaccines Aged Out No longer eligi ble based on patient's age to complete this topic MMR Vaccines Aged Out No longer eligi ble based on patient's age to complete this topic Meningococcal ACWY Vaccine Aged Out N o longer eligible based on patient's age to complete this topic Meningococcal B Vaccine Aged Out No l onger eligible based on patient's age to complete this topic Pneumococcal Vaccine: Pediat rics (0 to 5 Years) and At-Risk Patients (6 to 64 Years) Aged Out No longer eligi ble based on patient's age to complete this topic RSV Immunization Patients Un francoise 20 months Aged Out No longer eligible b ased on patient's age to complete this topic Varicella Vaccines Aged Out No longer eligible based on patient's age to complete this topic Procedures Procedure Name Priority Date/Time Associated Diagnosis Comments LIPID PANEL Routine 08/22/2022 from Last 3 Months or Most Recently Relevant to Health Maintenance Results * Lipid panel (08/22/2022) LDL/HDL Ratio 3 0 - 4 Triglycerides 53 0 - 150 mg/dL Cholesterol 149 0 - 200 mg/dL HDL 60 >=40 mg/dL LDL Cholesterol 79 0 - 100 mg/dL Blood Venous blood specimen / Unknown us Historical Provider LAB BLOOD ORDERABLES Luz l Result from Last 3 Months or Most Recently Relevant to Health Maintenance Insurance MEDICA[place] - [place] Care Teams Paid Search Marketing Strategist Relationship Specialty Start Date End Date Quinton Bryan MD [address] [place] [address] Dr Ana [place] PCP - General 07/12/23
--- OUTSIDE RECORDS SUMMARY | 2024-10-20 11:06 | XMS_ITS | Clinical Summary ---
Author Organization [facility] Address [address] [place] [address] Care Team Providers Care Secretary To Board Of Commissioners Name Role Phone Quinton Bryan MD Primary Care Provider [phone] Allergies Active Allergy Reactions Criticality Noted Date Comments Malian Cockroach Rash Low 04/24/2022 Goodrich Extract Swelling 08/22/2022 Other reaction(s): Hives/Urticaria Goodrich Flavoring Agent (Non-Screening) Rash Low 04/24/2022 Dust Mite Extract Rash Low 04/24/2022 Kiwi Rash Low 04/24/2022 Pollen Extract Rash Low 04/24/2022 Seasonal 10/27/2018 mom thinks she has some food allergies ie: cherries, kiwi, but has never been formally tested. Pollen Medications Medication Sig Dispensed Refills Start Date End Date Status ondansetron (ZOFRAN-ODT) 4 MG disintegrating tablet DISSOLVE 1 TABLET BY MOUTH EVERY 8 HOURS NEEDED FOR NAUSEA & VOMITING 0 06/29/2023 Active pantoprazole (PROTONIX) 40 MG tablet Take 1 tablet (40 mg total) by mouth daily. 0 06/25/2023 Active simethicone (MYLICON) 80 MG chewable tablet TAKE 1 TABLET BY MOUTH EVERY 6 HOURS NEEDED FOR FLATULENCE FOR UP TO 30 DAYS. 0 06/29/2023 Active Carafate 1 GM/10ML suspension 0 07/12/2023 Active Social History Tobacco Use Types Packs/Day Years Used Date Smoking Tobacco: Never Assessed Sex and Gender Information Value Date Recorded Sex Assigned at Not on file Gender Identity Not on file Sexual Orientation Not on file Job Start Date Occupation Industry Not on file Not on file Not on file Last Filed Vital Signs Vital Sign Reading Time Taken Comments Blood Pressure 105/65 07/19/2023 10:44 AM EDT Pulse 71 07/19/2023 10:44 AM EDT Temperature 36.5 C (97.7 F) 07/19/2023 10:44 AM EDT Respiratory Rate 18 07/17/2023 2:28 PM EDT Oxygen Saturation 100% 07/19/2023 10:44 AM EDT Inhaled Oxygen Concentration - - Weight 110 kg (242 lb 8.1 oz) 07/17/2023 2:28 PM EDT Height - - Body Mass Index - - Plan of Treatment Health Maintenance Due Date Last Done Comments Hepatitis C Screening 2000 COVID-19 Vaccine (#1) 02/07/2001 Depression Screening 2012 Gonorrhea and Chlamydia Screening 2013 Preventative Health Evaluation 2018 Cervical Cancer Screening (Pap Smear) 2021 DTap / Tdap / Td (7 - Td or Tdap) 11/06/2022 11/06/2012, 08/28/2004, 02/09/2002, Additional history exists Influenza Vaccine (#1) 2024 3, 02/22/2009, 02/17/2008, Additional history exists Hepatitis B Vaccines Completed 05/15/2001, 2000, 2000 Pneumococcal Vaccine Aged Out 08/30/2010, 02/13/2001, 2000, Additional history exists No longer eligible based on patient's age to complete this topic RSV Ped < 20 months Aged Out No longe r eligible based on patient's age to complete this topic Care Teams Secretary To Board Of Commissioners Relationship Specialty Start Date End Date Quinton Bryan MD [address] [place] [id number] PCP - General Family Medicine 07/12/23
== END 2024-10-20 10:40 | disposition home or self-care (01) ==
LOC: HO.HBS 10:04
PROVIDERS: PCP Nurse Practitioner Family; Visit Provider Physician Assistant Surgical
DX: E66.09 Other obesity due to excess calories (principal); Z68.36 Body mass index [BMI] 36.0-36.9, adult; Z90.3 Acquired absence of stomach [part of]; Z98.84 Bariatric surgery status
CPT/HCPCS: 99213; G2211

== ENCOUNTER 2025-01-05 15:20 | Outpatient (AMB) | payer OTHER, SELFPAY ==
--- NOTE | 2025-01-05 15:23 | MHC.OFFVIS ---
Vital Signs 01/05/25 15:26 Height 5 ft 7 in Weight 215 lb 13.321 oz BMI 33.8 BP 100/68 Blood Pressure Location Rt brachial Position Sitting Pulse 64 Pulse Source Pulse Oximeter Pulse Oximetry (%) 97 Oxygen Delivery Method Room Air Intake Visit Reasons: Polycystic Ovarian Syndrome Intake Note: New patient internally referred by PCP for PCOS. Patient states she is paying out of pocket for Tirzepatide. Silver Solution Mixer Required: No Accompanied by: Self / Same As Patient Allergies patterson Allergy (Severe, Verified 01/05/25 15:27) Shortness of Breath Fruit Allergy (Intermediate, Uncoded 01/05/25 15:27) Itching Seasonal Allergies Allergy (Intermediate, Uncoded 01/05/25 15:27) itching Medication List - Last Reconciled 01/05/25 by Armando Casas MD acetaminophen (Tylenol) 325 mg PO QID PRN Zepbound (tirzepatide (weight loss)) 2.5 mg (0.5 mL) subcut QWEEK NS HPI Comments Details: 24 YO Female with PMHx Obesity, s/p VSG 05/25/2020 who is seen in consultation at the request of her PCP for Amenorrhea.. The patient last saw Dr. Melara 05/26/2020 Menarche was age 12. Menses have been irregular. She gets her period only 4-5 times per year. She states duration is variable, sometimes on and off for over a month. Flow is variable, sometimes heavy and sometimes light. OCP use: Never taken Metformin use: Never used. Weight gain: Weight has been stable. Has obesity, and recently underwent a vertical sleeve gastrectomy. Hirsutism/hyperandrogenism: Has some hirsutism of the chin. Trying to conceive/clomiphene: Has never attempted conception. Ovarian U/S: Has never had. Workup was consistent with normal androgen levels including testosterone and DHEA-S as well as normal 70 hydroxy progesterone as well as normal prolactin and thyroid function studies. Menses are nl now. Increased hair growth on face . Shaves it or tweezes it. No children. Not looking to become . Had implant . Not on BCP. . Zepbound denied twicw by insurance . Talking compunded Mounjaro 4.4 mg The patient is a 24-year-old female presenting with concerns related to Polycystic Ovarian Syndrome (PCOS) and associated symptoms. She was diagnosed with PCOS at 19 after a comprehensive hormonal evaluation showed no abnormalities, leading to a diagnosis of exclusion. Her menstrual cycles, previously irregular, have since normalized. The patient reports hirsutism, with bothersome facial hair growth managed by shaving or considering electrolysis. This condition is attributed to excess male hormones, a common feature of PCOS. She has a history of obesity and has faced challenges with insurance coverage for weight loss medications. Currently, she uses a compounded form of Tirzepatide for weight management, funded out of pocket. The patient experienced vertigo, leading to an emergency room visit, but reports no new muscular weakness or unusual stretch uriostegui. She has a history of snoring, evaluated for sleep apnea with no significant findings. - control implant: Used for menstrual regulation, initially caused prolonged bleeding. - Progesterone: Prescribed to manage bleeding associated with control implant. - Tirzepatide (compounded): Used for weight management, paid out of pocket. [facility] Medical History Acute pancreatitis Obesity (BMI 35.0-39.9 without comorbidity) Vitamin D deficiency Amenorrhea Back pain Steatosis, liver Anxiety Recent URI GERD (gastroesophageal reflux disease) Morbid obesity Anemia Seasonal allergies Surgical History S/P repair of paraesophageal hernia S/P laparoscopic sleeve gastrectomy S/P cholecystectomy H/O gastric bypass History of bariatric surgery Hx of adenoidectomy Hx of tonsillectomy Family History Father HTN (hypertension) Mother Arthritis HTN (hypertension) Brother No problems noted. Sister No problems noted. Sister No problems noted. Sister No problems noted. Sister No problems noted. Sister No problems noted. Sister No problems noted. Sister No problems noted. 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 Thyroid gland is normal size weighs about 15 g. Shaved hair growth present on the chin. Assessment & Plan Assessment & Plan (1) PCOS (polycystic ovarian syndrome): Code(s): E28.2 - Polycystic ovarian syndrome Category: Medical Plan: 1. Polycystic Ovarian Syndrome (PCOS) The patient will start spironolactone at 100 mg to manage hirsutism, with a referral to DAIRY PROCESSING SUPERVISOR for further hormonal management. Contraception is advised due to spironolactone's teratogenic potential. Went over side effects of spironolactone in 1 patient not to become on spironolactone of the dangers of doing so of the fetus. We will check basic metabolic panel in 10 days after starting spironolactone 2. Hirsutism Spironolactone is recommended to reduce facial hair growth, with electrolysis as a future option for hair removal. 3. Obesity The patient is using compounded Tirzepatide for weight management. Alternatives like Zepbound were discussed, and continued nutritional support is encouraged. A referral was made to pickling operator During the visit, we discussed the management of PCOS, focusing on hirsutism and weight management. I explained the role of spironolactone in reducing hair growth and the importance of contraception due to its teratogenic risks. We also explored weight management options, including the use of Zepbound as an alternative to compounded Tirzepatide, and the benefits of working with a pickling operator. The patient was advised to follow up with an DAIRY PROCESSING SUPERVISOR for further hormonal management perhaps with the estrogen containing control pill instead of the Nexplanon. We reviewed the patient's recent episode of vertigo and history of snoring, noting no further interventions were necessary at this time. - Start spironolactone at 50 mg as prescribed to manage hirsutism. - Use contraception while taking spironolactone to prevent . - Consider electrolysis for hair removal after spironolactone has taken effect. - Explore Zepbound as an alternative for weight management if interested. - Follow up with DAIRY PROCESSING SUPERVISOR for further hormonal management and potential control adjustments. The patient had an opportunity to ask questions regarding treatment plan. The patient expressed understanding and agreement with the above treatment plan. Patient was informed and verbally consented to the use of an ambient scribe for clinic note documentation during this visit. Orders: Orders Basic Metabolic Panel Fasting 10 Days E28.2 - Polycystic ovarian syndrome Referrals Nutrition/Dietitian Referral E28.2 - Polycystic ovarian syndrome Medications: New spironolactone (Aldactone) 100 mg PO DAILY 30 tabs 4RF Coding Level of Care Code Est Pt Level 3 (88470) Diagnoses PCOS (polycystic ovarian syndrome) E28.2
[2025-01-05 15:26] VITALS: BP 100/68; PULSE 64; O2SAT 97; BMI 33.8
--- OUTSIDE RECORDS SUMMARY | 2025-01-05 18:46 | XMS_ITS | Clinical Summary ---
Author Organization [facility] Address [address] [place] [phone] Phone Care Team Providers Care Sausage Wrapper Name Role Phone Nabila Vega NP Primary Care Provider Allergies Active Allergy Reactions Criticality Noted Date Comments Allergenic Extract-Cockroach Rash Low 023 Goodrich Flavor Rash Low 04/24/2022 House Dust Mite Rash Low 04/24/2022 Kiwi Rash Low 04/24/2022 Pollen Extracts Rash Low 04/24/2022 Medications cetirizine (ZYRTEC) 10 MG tablet Take 10 mg by mouth daily as needed for allergies. Active Active Problems Problem Noted Date Diagnosed Date Preoperative examination 04/24/2022 Morbid obesity with BMI of 40.0-44.9, adult 06/2022 Assessment & Plan (05/22/2022 9:34 AM EST): This is a 21-year-old woman who is interested in conversion of her current laparoscopic sleeve gastrectomy to Mirela-en-Y gastric bypass for weight loss. Patient has lost 6.6 pounds and has to lose 20.4 more pounds to be a surgical weight loss candidate. Upon reviewing her eating plan the patient is not sticking to the eating plan is not getting enough protein and skipping meals. I have asked her to stick strictly to the eating plan of 2 meal replacements and 2 meals per day. She should increase her water intake to at least 64 ounces of water on a daily basis. She should resume exercise as soon as she is able to from the shortness of breath standpoint. The patient still needs to do her blood work chest x-ray EKG and H. pylori study, 5 out of 5 nutrition classes, and will complete her last behavioral health assessment. I will follow-up with her again in the office in 4 weeks timeframe. She is not stable and is considered morbidly obese. She will continue current medications as reviewed. Assessment & Plan (04/24/2022 3:12 PM EST): This is a 21YO patient who is interested in weight loss surgery, specifically the conversion of laparoscopic sleeve gastrectomy to Mirela-en-Y gastric bypass for weight loss. We have discussed gastric bypass surgery in detail including risks, benefits, and alternatives. We have also discussed requirements preop and post op. They understands that they are required to lose about 10 percent of their current weight which is 27 lbs. The goal weight at the time of submission to the insurance company will be 240.6 pounds. In an effort to help the patient to lose weight I have prescribed an eating plan which will consist of a protein shake or a protein bar or Pashto yogurt or cottage cheese to be consumed at 9 AM and 3 PM daily. The patient will consume 4 ounces of protein with 6 ounces of vegetable or small salad with a noncreamy salad dressing of not more than 2 tablespoons at 12 PM and 6 PM daily. At the 6 PM meal the patient may have 1/2 cup of carbohydrate. We have ordered required labs and testing. The patient will attend 5 nutrition classes, 2 appointments, and dietitian consultation. The patient will need to obtain a medical clearance letter from the primary care doctor prior to submission to the insurance company. The patient will see the dietitian in 2 weeks and I will follow up with them again in 4 weeks to ensure compliance with the meal plan. The patient will continue current medications as reviewed. They are not stable and are considered morbidly obese. I spent 62 minutes with this patient which also included documentation. Family History Medical History Relation Comments Cancer Maternal Grandfather Diabetes type II Maternal Grandmother Hypertension Mother Relation Status Comments Father Alive Maternal Grandfather Maternal Grandmother Alive Mother Alive Paternal Grandfather Paternal Grandmother Sister Alive Social History Tobacco Use Types Packs/Day Years Used Date Smoking Tobacco: Never Smokeless Tobacco: Current Tobacco Cessation:Ready to Q uit: Not Asked; Counseling Given: Not Answered Comments:Occasional Huka Alcohol Use Standard Drinks/Week Comments Yes 3 (1 standard drink = 0.6 oz pur e alcohol) 3 mixed drinks per week Education Answer Date Recorded Are you interested in more education? Not on gloria e 08/18/2022 Are you concerned about learning? Not on file 08/18/2022 No 08/18/2022 No 08/18/2022 Digital Access Answer Date Recorded No 09/18/2022 No 09/18/2022 Reliable internet access at home? Not on file 09/18/2022 Device with a working camera? 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 Not on file Not on file Not on file Last Filed Vital Signs Vital Sign Reading Time Taken Comments Blood Pressure 94/60 05/22/2022 8:00 AM EST Pulse 72 05/22/2022 8:00 AM EST Temperature 36.7 C (98 F) 05/22/2022 8:00 AM EST Respiratory Rate - - Oxygen Saturation 98% 05/22/2022 8:00 AM EST Inhaled Oxygen Concentration - - Weight 117.9 kg (260 lb) 06/19/2022 10:25 AM EST Height 170.2 cm (5' 7.01 ) 05/22/2022 8:00 AM ES T Body Mass Index 40.71 05/22/2022 8:00 AM EST Plan of Treatment Health Maintenance Due Date Last Done Comments DEPRESSION SCREENING 2012 SMOKING Hx and SMOKELESS TOBACCO SCREENING 2013 CHLAMYDIA SCREENING 2016 HEPATITIS C SCREENING 2018 HIV ONE-TIME SCREENING (18-65 YEARS) 2018 PAP SMEAR 2021 Adult Td,Tdap Booster 11/06/2022 11/06/2012 INFLUENZA VACCINE (#1) 2024 3, 02/22/2009, 02/17/2008, Additional history exists COVID-19 VACCINE ( season) 2024 HIB VACCINES Completed 11/10/2001, 01/21, 2000, Additional history exists PNEUMOCOCCAL VACCINES (0-49 years) Aged Out 08/30/2010, 02/13/2001, 2000, Additional history exists No longer eligible based on patient's age to complete this topic HPV VACCINES Completed 05/03/2011, 10/20, 08/30/2010 MENINGOCOCCAL VACCINES (ACWY) Aged Out 11/06/2012 No longer eligible based on patient's age to complete this topic HEPATITIS A VACCINES Aged Out No long er eligible based on patient's age to complete this topic MENINGOCOCCAL VACCINES (B) Aged Out N o longer eligible based on patient's age to complete this topic Medical Devices Not on file Insurance ACO ACO ACO ACO ACO ACO Care Teams Sausage Wrapper Relationship Specialty Start Date End Date Nabila Vega NP PCP - General 04/05/22 Additional Source Comments The information contained in this document represents components of the legal health record. It is not the complete legal health record.[facility]
--- OUTSIDE RECORDS SUMMARY | 2025-01-05 18:46 | XMS_ITS | Clinical Summary ---
Author Organization [address] [place] [address] [place] [phone] Phone Care Team Providers Care Stone Decorator Name Role Phone Rosa Jacques Primary Care Provider [phone] Allergies Active Allergy Reactions Criticality Noted Date Comments Goodrich Hives,Swelling 08/22/2022 Medications wheat dextrin (Benefiber Healthy Shape) 5 gram/7.4 gram powder Take 4 g by mouth daily. 4 Active cetirizine (ZyrTEC) 10 mg tablet Take 1 Tablet by mouth daily. Active meclizine (ANTIVERT) 25 mg tablet Take 1 tablet (25 mg total) by mouth 3 (three) times a day if needed for dizziness for up to 10 days. 30 tablet 5 12/28/19 25 Active Problems Problem Noted Date Diagnosed Date [...] the results of both of these test. Encounters Date Type Department Care Team Description 12/17/2024 9:47 PM EDT - 12/17/2024 11:00 PM EDT Emergency [facility] Emergency [address] [place] [address] Benign paroxysmal positional vertigo, unspecified laterality (Primary Dx); Vertigo Discharge Disposition: Home or Self Care from Last 3 Months Surgical History Surgery Date Site/Laterality Comments CHOLECYSTECTOMY N/A PROCEDURE: [place] LAPAROSCOPY SURG CHOLECYSTECTOMY BARIATRIC SURGERY N/A PROCEDURE: [place] LAPS GSTRC RSTRICTIV PX LONGITUDINAL GASTRECTOMY Social [...] Sign Reading Time Taken Comments Blood Pressure 109/65 12/17/2024 7:34 PM EDT Pulse 61 12/17/2024 7:34 PM EDT Temperature 36.8 C (98.2 F) 12/17/2024 7:34 PM EDT Respiratory Rate 18 12/17/2024 7:34 PM EDT Oxygen Saturation 98% 12/17/2024 7:34 PM EDT Inhaled Oxygen Concentration - - Weight 98.9 kg (218 lb) 12/17/2024 7:34 PM EDT Height 172.7 cm (5' 8 ) 12/17/2024 7:34 PM EDT Body Mass Index 33.15 12/17/2024 7:34 PM EDT Plan of Treatment Health Maintenance Due Date Last Done Comments Gonorrhea/Chlamydia Screening 2000 Pneumococcal Vaccine: Pediatrics (0 to 5 Years) and At-Risk Patients (6 to 49 Years) (1 of 1 - PPSV23) 10/25/2010 08/30/2010, 02/13/2001, 2000, Additional history exists Cervical Cancer Screening: Pap Smear 2021 HIV Screening 05/16/2023 Hepatitis C Screening 05/16/2023 Social Influencers of Health Screening 05/16/2023 Depression Screening 04/22/2024 COVID-19 Vaccine ( season) 2024 08/11/2020, 07/14/2020 Influenza Vaccine (#1) 2024 3, 02/22/2009, 02/17/2008, Additional history exists Cholesterol Screening (Lipid Panel) 08/23/2027 08/22/2022 DTaP,Tdap,and Td Vaccines (8 - Td or Tdap) 10/10/2033 10/11/2023, 11/06/2012, 08/28/2004, Additional history exists HIB Vaccines Completed 11/10/2001, 01/21, 2000, Additional history exists IPV Vaccines Completed 08/28/2004, 01/21, 2000, Additional history exists MMR Vaccines Completed 08/28/2004, 11/10/2001 Varicella Vaccines Completed 08/30/2010, 08/14/2001 HPV Vaccines Completed 05/03/2011, 10/20, 08/30/2010 Meningococcal ACWY Vaccine Aged Out 11/06/2012 N o longer eligible based on patient's age to complete this topic Hepatitis B Vaccines Completed 09/22/2023, 05/15/2001, 2000, Additional history exists Hepatitis A Vaccines Aged Out No long er eligible based on patient's age to complete this topic Meningococcal B Vaccine Aged Out No l onger eligible based on patient's age to complete this topic RSV Immunization Patients Under 20 months Aged Out No longer eligible based on patient's age to complete this topic Procedures Procedure Name Priority Date/Time Associated Diagnosis Comments ECG ANNOTATED 12/22/2024 POC , URINE DIAGNOSTIC STAT 12/17/2024 8:32 PM EDT ECG 12-LEAD STAT 12/17/2024 8:08 PM EDT CBC WITH AUTO DIFFERENTIAL STAT 12/17/2024 8:04 PM EDT MAGNESIUM STAT 12/17/2024 8:04 PM EDT BASIC METABOLIC PANEL STAT 12/17/2024 8:04 PM EDT CBC AND DIFFERENTIAL STAT 12/17/2024 8:04 PM EDT LIPID PANEL Routine 08/22/2022 from Last 3 Months or Most Recently Relevant to Health Maintenance Results * ECG-Annotated (12/22/2024) Provider Onbase MD ECG ORDERABLES Final Result * POC , urine manually resulted (12/17/2024 8:32 PM EDT) HCG, Ur POC Negative Negative POC hCG Int QC Pass? Yes Yes Urine Urine specimen obtained by clean catch procedure / Unknown 12/17/2024 8:32 PM EDT Sydnee COLVIN POINT OF CARE TEST ENTER /EDIT ORDERABLES Final Result * ECG 12 lead (12/17/2024 8:08 PM EDT) Ventricular Rate ECG 54 BPM GEMUSE Atrial Rate 54 BPM GEMUSE P-R Interval 154 ms GEMUSE QRS Duration 92 ms GEMUSE Q-T Interval 442 ms GEMUSE QTc 419 ms GEMUSE P Wave [place] 4 degrees GEMUSE R [place] 56 degrees GEMUSE T [place] 31 degrees GEMUSE ECG Interpretation Sinus bradycardia Otherwise normal ECG When compared with ECG of 04-JUL-2023 20:17, No significant change was found Confirmed by Haily HANNA YUFENG ([id number]) on 12/17/2024 8:18:44 PM GEMUSE 12/17/2024 8:08 PM EDT 12/17/2024 8:18 PM EDT us Evangelista Palafox MD ECG ORDERABLES Final Result GEMUSE * (ABNORMAL) CBC auto differential (12/17/2024 8:04 PM EDT) WBC 7.6 4.8 - 10.8 K/mcL LAB HEMETOLOGY METHOD 12/17/2024 9:06 PM EDT [facility] RBC 4.40 3.80 - 4.80 M/mcL LAB HEMETOLOGY METHOD 12/17/2024 9:06 PM EDT [facility] Hemoglobin 11.1(L) 11.5 - 16.0 g/dL LAB [facility] Hematocrit 35.8 35.0 - 47.0 % LAB HEMETOLOGY METHOD 12/17/2024 9:06 PM EDT [facility] MCV 81.2 79.0 - 98.0 FL LAB HEMETOLOGY METHOD 12/17/2024 9:06 PM EDT [facility] MCH 25.2(L) 27.0 - 32.0 pcg LAB HEMETOLOGY METHOD 12/17/2024 9:06 PM [facility] MCHC 31.0(L) 32.0 - 37.0 g/dL LAB HEMETOLOGY METHOD 12/17/2024 9:06 PM EDT [facility] RDW 15.0 11.0 - 15.0 % LAB HEMETOLOGY METHOD 12/17/2024 9:06 PM EDT [facility] Platelets 243 130 - 400 K/mcL LAB HEMETOLOGY METHOD 12/17/2024 9:06 PM EDT [facility] MPV 12.2(H) 7.0 - 11.0 FL LAB HEMETOLOGY METHOD 12/17/2024 9:06 PM [facility] NRBC 0.0 <1.0 % LAB HEMETOLOGY METHOD 12/17/2024 9:06 PM [facility] NRBC Absolute 0.00 <0.10 K/mcL LAB HEMETOLOGY METHOD 12/17/2024 9:06 PM [facility] Neutrophils Relative 73.2 % LAB HEMETOLOGY METHOD 12/17/2024 9:06 PM [facility] Lymphocytes Relative 20.2 % LAB HEMETOLOGY METHOD 12/17/2024 9:06 PM [facility] Monocytes Relative 4.9 % LAB HEMETOLOGY METHOD 12/17/2024 9:06 PM [facility] Eosinophils Relative 1.0 % LAB HEMETOLOGY METHOD 12/17/2024 9:06 PM [facility] Basophils Relative 0.4 % LAB HEMETOLOGY METHOD 12/17/2024 9:06 PM [facility] Immature Granulocytes Relative 0.3 % LAB HEMETOLOGY METHOD 12/17/2024 9:06 PM [facility] Neutrophils Absolute 5.58 1.50 - 7.00 K/mcL LAB HEMETOLOGY METHOD 12/17/2024 9:06 PM [facility] Lymphocytes Absolute 1.54 1.00 - 5.00 K/mcL LAB HEMETOLOGY METHOD 12/17/2024 9:06 PM [facility] Monocytes Absolute 0.37 0.20 - 1.00 K/mcL LAB HEMETOLOGY METHOD 12/17/2024 9:06 PM [facility] Eosinophils Absolute 0.08 0.00 - 0.50 K/mcL LAB HEMETOLOGY METHOD 12/17/2024 9:06 PM [facility] Basophils Absolute 0.03 0.00 - 0.20 K/mcL LAB HEMETOLOGY METHOD 12/17/2024 9:06 PM EDT [facility] Immature Granulocytes Absolute 0.02 0.00 - 0.03 K/mcL LAB HEMETOLOGY METHOD 12/17/2024 9:06 PM EDT [facility] Blood Venous blood specimen / Unknown Venipuncture / Unknown 12/17/2024 8:04 PM EDT 12/17/2024 8:59 PM EDT Evangelista Palafox MD LAB BLOOD ORDERABLES Final Resu lt [facility] [address] [place] [address], [place] [phone] * Magnesium (12/17/2024 8:04 PM EDT) Magnesium 1.9 1.9 - 2.6 mg/dL LAB CHEMISTRY METHOD 12/17/2024 9:36 PM EDT [facility] Blood Venous blood specimen / Unknown Venipuncture / Unknown 12/17/2024 8:04 PM EDT 12/17/2024 8:59 PM EDT us Evangelista Palafox MD LAB BLOOD ORDERABLES Final Resu lt [facility] [address] [place] [address], [place] [phone] * Basic metabolic panel (12/17/2024 8:04 PM EDT) Sodium 139 133 - 145 mmol/L LAB CHEMISTRY METHOD 12/17/2024 9:36 PM EDT [facility] Potassium 4.1 3.5 - 5.5 mmol/L LAB CHEMISTRY METHOD 12/17/2024 9:36 PM EDT [facility] Chloride 106 96 - 110 mmol/L LAB CHEMISTRY METHOD 12/17/2024 9:36 PM EDT [facility] CO2 28 21 - 32 mmol/L LAB CHEMISTRY METHOD 12/17/2024 9:36 PM EDT [facility] Anion Gap 5 3 - 11 LAB CHEMISTRY METHOD [facility]/17[facility] Glucose 85 70 - 100 mg/dL LAB CHEMISTRY METHOD 12/17/2024 9:36 PM EDT [facility] BUN 8 5 - 25 mg/dL LAB CHEMISTRY METHOD 12/17/2024 9:36 PM T [facility] Creatinine 0.58 0.50 - 1.10 mg/dL LAB CHEMISTRY METHOD 12/17/2024 9:36 PM EDT [facility] eGFR 130 >=60 mL/min/1. 73m2 LAB CHEMISTRY METHOD 12/17/2024 9:36 PM EDT [facility] Comment:Calculation based on the Chronic Kidney Disease Epidemiology Collaboration (CKD-EPI) equation refit without adjustment for race. BUN/Creatinine Ratio 13.8 LAB CHEMISTRY METHOD 12/17/2024 9:36 PM [facility] Calcium 9.7 8.5 - 10.5 mg/dL LAB CHEMISTRY METHOD 12/17/2024 9:36 PM [facility] Blood Venous blood specimen / Unknown Venipuncture / Unknown 12/17/2024 8:04 PM EDT 12/17/2024 8:59 PM EDT us Evangelista Palafox MD LAB BLOOD ORDERABLES Final Resu lt [facility] [address] [place] [address], * Lipid panel (08/22/2022) LDL/HDL Ratio 3 0 - 4 Triglycerides 53 0 - 150 mg/dL Cholesterol 149 0 - 200 mg/dL HDL 60 >=40 mg/dL LDL Cholesterol 79 0 - 100 mg/dL Blood Venous blood specimen / Unknown Historical Provider LAB BLOOD ORDERABLES Luz josé Result from Last 3 Months or Most Recently Relevant to Health Maintenance Insurance [place] [address] [place] [address] Care Teams Stone Decorator Relationship Specialty Start Date End Date Rosa Jacques FNP [address] [place] [phone] PCP - General Nurse Practitioner 12/17/24
== END 2025-01-05 16:17 | disposition home or self-care (01) ==
LOC: HO.ENCR 15:21
PROVIDERS: PCP Nurse Practitioner Family; Visit Provider Internal Medicine Endocrinology, Diabetes & Metabolism
DX: E28.2 Polycystic ovarian syndrome (principal)
CPT/HCPCS: 99213